=== PATIENT | male | born 1990 | race Caucasian/White ===

== ENCOUNTER 2016-08-03 17:46 | Emergency (ER) | payer SELFPAY ==
--- NOTE | 2016-08-03 18:22 | EKG REPORT ---
SEVERITY:- NORMAL ECG - SINUS RHYTHM : Confirmed by: El Collier MD 03-Aug-2016 18:21:49
[2016-08-03] MEDS ORDERED: FLUOXETINE HCL 20 MG CAPSULE PO ONE (18:25)
[2016-08-03] MEDS ORDERED: MAG HYDROX/AL HYDROX/SIMETH SUSP 30 ML UDCUP PO ONE (18:25)
[2016-08-03] MEDS ORDERED: LIDOCAINE 2% VISCOUS SOLN 20 ML UDCUP PO ONE (18:25)
[2016-08-03] MEDS ORDERED: METOCLOPRAMIDE HCL ORAL SOLN 10 MG/10 ML UDCUP PO ONE (18:25)
--- NOTE | 2016-08-03 18:31 | ER Document Report ---
ED General - General Chief Complaint: Chest Pain Stated Complaint: CHEST PAIN Notes: Patient is a 26-year-old male without past medical history who presents with 2 days of intermittent left-sided chest pain. Pain is described as intermittent, stabbing, pressure-like pain. Nothing improves or worsens the pain. States this is typically worse in the morning or when he is lying flat. He's had a history of similar chest pain in the past. Denies any history of DVT or pulmonary embolus. At time of my assessment he denies any ongoing chest pain. No shortness of breath, nausea, vomiting or pain radiating to the arms, jaw or back. TRAVEL OUTSIDE OF THE [place] IN LAST 30 DAYS: No COUNTRY TRAVELED TO/FROM: [facility] - Related Data Allergies/Adverse Reactions: risperidone [From Risperdal] Allergy (Verified 08/03/16 18:00) Past Medical History - General Information source: Patient - Social History Smoking Status: Current Every Day Smoker Frequency of alcohol use: Occasional Drug Abuse: None Lives with: Spouse/Significant other Family History: Reviewed & Not Pertinent Patient has suicidal ideation: No Patient has homicidal ideation: No - Past Medical History Cardiac Medical History: Reports: Hx Hypercholesterolemia - As teenager, not currently, Hx Hypertension - As teenager, not currently Renal/ Medical History: Denies: Hx Peritoneal Dialysis Past Surgical History: Reports: Hx Orthopedic Surgery - Right Ankle - Pins placed, Hx Tonsillectomy Review of Systems - Review of Systems Notes: Constitutional: Negative for fever. HENT: Negative for sore throat. Eyes: Negative for visual changes. Cardiovascular: Positive for chest pain. Respiratory: Negative for shortness of breath. Gastrointestinal: Negative for abdominal pain, vomiting or diarrhea. Genitourinary: Negative for dysuria. Musculoskeletal: Negative for back pain. Skin: Negative for rash. Neurological: Negative for headaches, weakness or numbness. 10 point ROS negative except as marked above and in HPI. Physical Exam - Vital signs Vitals: Temp Pulse Resp BP Pulse Ox 97.8 F 102 H 19 133/94 H 99 08/03/16 17:58 08/03/16 17:58 08/03/16 17:58 08/03/16 17:58 08/03/16 17:58 Patient was not tachycardic at time of my assessment, heart rate 82 Interpretation: Normal Notes: PHYSICAL EXAMINATION: GENERAL: Well-appearing, well-nourished and in no acute distress. HEAD: Atraumatic, normocephalic. EYES: Pupils equal round and reactive to light, extraocular movements intact, sclera anicteric, conjunctiva are normal. ENT: nares patent, oropharynx clear without exudates. Moist mucous membranes. NECK: Normal range of motion, supple without lymphadenopathy LUNGS: Breath sounds clear to auscultation bilaterally and equal. No wheezes rales or rhonchi. HEART: Regular rate and rhythm without murmurs ABDOMEN: Soft, nontender, normoactive bowel sounds. No guarding, no rebound. No masses appreciated. EXTREMITIES: Normal range of motion, no pitting or edema. No cyanosis. NEUROLOGICAL: No focal neurological deficits. Moves all extremities spontaneously and on command. PSYCH: Normal mood, normal affect. SKIN: Warm, Dry, normal turgor, no rashes or lesions noted. Course - Re-evaluation Re-evalutation: 08/03/16 18:32 Presentation of chest pain in an otherwise well appearing patient. Low clinical suspicion for ACS given clinical history, exam, EKG without ST elevations or depressions, and negative initial troponin. HEART score less than or equal to 3. PE also seems unlikely given clinical history, absence of tachycardia or dyspnea. Patient is PERC criteria negative (at time of my assessment and based on EKG HR). CXR without evidence of pneumothorax or pneumonia. No widened mediastinum. Aortic dissection also seems unlikely given history, symmetric pulses, CXR, and vitals. His history appears most consistent with either anxiety versus esophageal spasm. He did have resolution of his pain after receiving a GI cocktail here in the emergency department. Of note, patient states that in the past he was told he had had a "small heart attack" at a hospital when he was 23 years of age. However the clinical history provided is not consistent with this. He states he was x-ray discharged several hours of being told this, did not undergo cardiac catheterization, cardiac echocardiogram , and he was not placed on any medications. He has followed up with a airline transport pilot and was told that it does not appear he's ever had a heart attack. Likewise his EKG does not show any evidence of an old infarction and I likewise do not suspect that patient never had an actual cardiac injury. HEART Score: History:0 EC Age:0 Risk Factors:1 Troponin:0 Total: 0 Of note, the patient and I also discussed his chronic daily anxiety and he did request to be started on something to help treat this. He will be started on fluoxetine 20 mg daily and has been instructed to follow-up with his primary care doctor for continuation of this medication. - Vital Signs Vital signs: Temp Pulse Resp BP Pulse Ox 97.8 F 102 H 19 133/94 H 99 08/03/16 17:58 08/03/16 17:58 08/03/16 17:58 08/03/16 17:58 08/03/16 17:58 - EKG Interpretation by Me Additional EKG results interpreted by me: 08/03/16 18:31 Normal sinus rhythm. Rate 89. No ST elevations or depressions. QTC is 409. Discharge - Discharge Clinical Impression: Chronic anxiety Chest pain Qualifiers: Chest pain type: unspecified Qualified Code(s): R07.9 - Chest pain, unspecified Condition: Good Disposition: HOME, SELF-CARE Additional Instructions: You were seen today for chest pain. The exact cause of your pain is unclear. However, based on your cardiac enzyme testing, chest x-ray, and EKG it does not appear that it is from an immediately life-threatening cause at this time. Your symptoms are most likely related esophageal spasms. You should start taking famotidine 40 mg in the morning and 40 mg at night. This medication can be purchased directly [id number]. Also, based on our conversation about your daily anxiety you have been started on an antidepressant called fluoxetine. Please follow-up with the primary care doctor you were referred to for continuation of this medication. Please be aware that this medication typically takes 6-8 weeks to have its full effect and you may not notice anything for the first several weeks. Please do not abruptly stopped this medication on your own. Please return to emergency department immediately if you have worsening of your chest pain, shortness of breath, vomiting, become unable to exert yourself due to pain or difficulty breathing, you pass out, or have any pain that radiates into your arms, jaw, or back. Please also return if you have any additional symptoms that are concerning to you. Prescriptions: Fluoxetine HCl 20 mg PO DAILY #60 tablet Referrals: TREY SAMUEL MD [ACTIVE STAFF] - Follow up as needed
[2016-08-03 19:30] VITALS: BP 135/95
== END 2016-08-03 19:33 | disposition home or self-care (01) ==
LOC: ER 17:46
DX: R07.89 Other chest pain (principal); F41.9 Anxiety disorder, unspecified; I10 Essential (primary) hypertension; F17.200 Nicotine dependence, unspecified, uncomplicated; Z88.8 Allergy status to other drugs, medicaments and biological substances
CPT/HCPCS: 93005; 99285; 36415; 84484; 71010; 93010; J3490

== ENCOUNTER 2016-10-02 14:33 | Emergency (ER) | payer SELFPAY ==
[2016-10-02] MEDS ORDERED: HYDROCODONE/ACETAMINOPHEN 5-325 MG TABLET PO ONE (15:56)
--- NOTE | 2016-10-02 15:58 | ER Document Report ---
ED Medical Screen (RME) - General Chief Complaint: Abdominal Pain Stated Complaint: STOMACH PAIN Time Seen by Provider: 10/02/16 15:49 Notes: This 26-year-old male patient who recently moved here from [facility] complains of left testicular pain since a vasectomy was done on May 31, 2016. He was seen at [facility] about 5 days ago at which time an ultrasound and urinalysis were unremarkable. He was told to call a urologist on Friday morning for follow-up. He was on a state healthcare plan when he left [place]. He has been unable to get on Medicaid since arriving in [place]. He has no health insurance therefore cannot get an appointment. I have greeted and performed a rapid initial assessment of this patient. A comprehensive ED assessment and evaluation of the patient, analysis of test results and completion of the medical decision making process will be conducted by additional ED providers. TRAVEL OUTSIDE OF THE U[place] IN LAST 30 DAYS: No COUNTRY TRAVELED TO/FROM: [facility] - Related Data Allergies/Adverse Reactions: risperidone [From Risperdal] Allergy (Verified 08/03/16 18:00) Past Medical History - Past Medical History Cardiac Medical History: Reports: Hx Hypercholesterolemia - As teenager, not currently, Hx Hypertension - As teenager, not currently Renal/ Medical History: Denies: Hx Peritoneal Dialysis Past Surgical History: Reports: Hx Orthopedic Surgery - Right Ankle - Pins placed, Hx Tonsillectomy Physical Exam - Vital signs Vitals: Temp Pulse Resp BP Pulse Ox 98.3 F 88 22 H 135/86 H 99 10/02/16 14:37 10/02/16 14:37 10/02/16 14:37 10/02/16 14:37 10/02/16 14:37 Course - Vital Signs Vital signs: Temp Pulse Resp BP Pulse Ox 98.3 F 88 22 H 135/86 H 99 10/02/16 14:37 10/02/16 14:37 10/02/16 14:37 10/02/16 14:37 10/02/16 14:37
--- NOTE | 2016-10-02 17:51 | ER Document Report ---
ED GI/ - General Chief Complaint: Abdominal Pain Stated Complaint: ABDOMINAL PAIN Time Seen by Provider: 10/02/16 15:49 Notes: 26-year-old male patient,recently moved here from [facility], complains of right testicular pain since a vasectomy was done on May 31, 2016. He was seen at [facility] about 5 days ago at which time an ultrasound and urinalysis were unremarkable. He was told to call a urologist on Friday morning for follow-up. He was on a state healthcare plan when he left [place]. He has been unable to get on Medicaid since arriving in [place]. He has no health insurance therefore cannot get an appointment. Pain is the same in location and quality as it has been. denies fever, discharge, erectile dysfuction TRAVEL OUTSIDE OF THE [place] IN LAST 30 DAYS: No COUNTRY TRAVELED TO/FROM: [facility] - HPI Patient complains to provider of: Testicular pain Onset: Other - x 6 months Timing/Duration: Persistent Quality of pain: Sharp Location: Right testicle Sexual history: Active Associated symptoms: denies: Dysuria, Erection problem, Fever Exacerbated by: Denies Relieved by: Denies Similar symptoms previously: Yes Recently seen / treated by doctor: Yes - Related Data Allergies/Adverse Reactions: risperidone [From Risperdal] Allergy (Verified 08/03/16 18:00) Past Medical History - General Information source: Patient - Social History Smoking Status: Current Every Day Smoker Frequency of alcohol use: None Drug Abuse: None Lives with: Family Family History: Reviewed & Not Pertinent Patient has suicidal ideation: No Patient has homicidal ideation: No - Past Medical History Cardiac Medical History: Reports: Hx Hypercholesterolemia - As teenager, not currently, Hx Hypertension - As teenager, not currently Renal/ Medical History: Denies: Hx Peritoneal Dialysis Past Surgical History: Reports: Hx Orthopedic Surgery - Right Ankle - Pins placed, Hx Tonsillectomy Review of Systems - Review of Systems Constitutional: No symptoms reported EENT: No symptoms reported Cardiovascular: No symptoms reported Respiratory: No symptoms reported Gastrointestinal: No symptoms reported Genitourinary: See HPI Male Genitourinary: No symptoms reported Musculoskeletal: No symptoms reported Skin: No symptoms reported Hematologic/Lymphatic: No symptoms reported Neurological/Psychological: No symptoms reported Physical Exam - Vital signs Vitals: Temp Pulse Resp BP Pulse Ox 98.3 F 88 22 H 135/86 H 99 10/02/16 14:37 10/02/16 14:37 10/02/16 14:37 10/02/16 14:37 10/02/16 14:37 Interpretation: Normal - General General appearance: Appears well, Alert - HEENT Head: Normocephalic, Atraumatic Eyes: Normal Pupils: PERRL - Respiratory Respiratory status: No respiratory distress Chest status: Nontender Breath sounds: Normal Chest palpation: Normal - Cardiovascular Rhythm: Regular Heart sounds: Normal auscultation Murmur: No - Abdominal Inspection: Normal Distension: No distension Bowel sounds: Normal Tenderness: Nontender Organomegaly: No organomegaly - Genitourinary Tenderness: Testicle tender - right, Epididymis tender Scrotum: Swelling - right - Back Back: Normal, Nontender - Extremities General upper extremity: Normal inspection, Nontender, Normal color, Normal ROM , Normal temperature General lower extremity: Normal inspection, Nontender, Normal color, Normal ROM , Normal temperature, Normal weight bearing. No: Panchito's sign - Neurological Neuro grossly intact: Yes Cognition: Normal Orientation: AAOx4 Kathleen Coma Scale Eye Opening: Spontaneous Teresa Coma Scale Verbal: Oriented Kathleen Coma Scale Motor: Obeys Commands Kathleen Coma Scale Total: 15 Speech: Normal Motor strength normal: LUE, RUE, LLE, RLE Sensory: Normal - Psychological Associated symptoms: Normal affect, Normal mood - Skin Skin Temperature: Warm Skin Moisture: Dry Skin Color: Normal Course - Re-evaluation Re-evalutation: 10/02/16 18:18 US done recently, negative. no change in character, quality or location of pain. no new symptoms. will treat for pain and have patient follow up with urology. explained to patient that ED will not refill pain medication. - Vital Signs Vital signs: Temp Pulse Resp BP Pulse Ox 98.3 F 88 22 H 135/86 H 99 10/02/16 14:37 10/02/16 14:37 10/02/16 14:37 10/02/16 14:37 10/02/16 14:37 Discharge - Discharge Clinical Impression: Testicular pain, right Condition: Stable Disposition: HOME, SELF-CARE Instructions: Testicular Pain ([facility]), Oral Narcotic Medication ([facility]) Additional Instructions: You have been given a prescription for a narcotic pain medication The ER will not refill this prescription You need to follow up with urology for further evaluation and treatment [facility] [address] [place] [address] Prescriptions: Oxycodone HCl/Acetaminophen [Percocet 5-325 mg Tablet] 1 tab PO ASDIR PRN #25 tablet PRN Reason: Forms: Elevated Blood Pressure Referrals: ZULAY MONTANEZ MD [QUICK TECHNICIAN] - Follow up as needed
[2016-10-02 18:30] VITALS: BP 132/80
== END 2016-10-02 18:16 | disposition home or self-care (01) ==
LOC: ER 14:33
DX: N50.811 Right testicular pain (principal); F17.200 Nicotine dependence, unspecified, uncomplicated
CPT/HCPCS: 99283

== ENCOUNTER 2018-02-18 16:00 | Emergency (ER) | payer MEDICAID ==
[2018-02-18] MEDS ORDERED: CYCLOBENZAPRINE HCL 10 MG TABLET PO ONE (16:57)
[2018-02-18] MEDS ORDERED: DEXAMETHASONE SOD PHOS INJ 10 MG/1 ML VIAL IM ONE (16:57)
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
--- NOTE | 2018-02-18 18:11 | RADIOLOGY REPORT (SQ) ---
EXAM DESCRIPTION: L SPINE WHOLE COMPLETED DATE/TIME: 02/18/2018 5:49 pm REASON FOR STUDY: severe back pain x 4 days COMPARISON: None. NUMBER OF VIEWS: Five views including obliques. TECHNIQUE: AP, lateral, oblique, and sacral radiographic images acquired of the lumbar spine. LIMITATIONS: None. FINDINGS: MINERALIZATION: Normal. SEGMENTATION: Normal. No transitional anatomy. ALIGNMENT: Normal. VERTEBRAE: There is mild anterior wedging of T12 of uncertain age. DISCS: Preserved height. No significant osteophytes or end plate irregularity. POSTERIOR ELEMENTS: Pedicles and facets are intact. No pars defect or posterior arch defects. HARDWARE: None in the spine. PARASPINAL SOFT TISSUES: Normal. PELVIS: Intact as visualized. No fractures or worrisome bone lesions. SI joints intact. OTHER: No other significant finding. IMPRESSION: There is mild anterior wedging of T12 uncertain age. No other abnormality is suggested. TECHNICAL DOCUMENTATION: JOB ID: [id number] [email or web address]- All Rights Reserved Reading location - IP/workstation name: [email or web address]
--- NOTE | 2018-02-18 18:12 | RADIOLOGY REPORT (SQ) ---
EXAM DESCRIPTION: T SPINE AP/LAT COMPLETED DATE/TIME: 02/18/2018 5:49 pm REASON FOR STUDY: severe back pain x 4 days COMPARISON: None. NUMBER OF VIEWS: Two views. TECHNIQUE: AP and lateral radiographic images acquired of the thoracic spine. LIMITATIONS: None. FINDINGS: MINERALIZATION: Normal. ALIGNMENT: Normal. No scoliosis. VERTEBRAE: Mild anterior wedging of T12. DISCS: No significant loss of height or significant narrowing. No large osteophytes. HARDWARE: None in the spine. MEDIASTINUM AND SOFT TISSUES: Normal heart size and aortic contour. No soft tissue abnormality. VISUALIZED LUNG CHERRY: Clear. OTHER: No other significant finding. IMPRESSION: Mild anterior wedging of T12 of uncertain age. No other findings. TECHNICAL DOCUMENTATION: JOB ID: [id number] [employer]- All Rights Reserved Reading location - IP/workstation name: [email or web address]
[2018-02-18] MEDS ORDERED: HYDROCODONE/ACETAMINOPHEN 5-325 MG TABLET PO ONE (18:50)
[2018-02-18 19:30] VITALS: BP 144/93
== END 2018-02-18 19:31 | disposition home or self-care (01) ==
LOC: ER 16:00
DX: M54.42 Lumbago with sciatica, left side (principal); M54.89 Other dorsalgia; I10 Essential (primary) hypertension; F17.210 Nicotine dependence, cigarettes, uncomplicated; Z71.6 Tobacco abuse counseling
CPT/HCPCS: 99406; 99283; 96372; 72110; 72070; J3490; J1100

== ENCOUNTER 2018-02-22 14:38 | Emergency (ER) | payer MEDICAID ==
[2018-02-22] MEDS ORDERED: KETOROLAC TROMETHAMINE INJ/PF 30 MG/1 ML SDV IM ONE (15:22)
[2018-02-22 15:23] VITALS: BP 155/89
[2018-02-22] MEDS ORDERED: DEXAMETHASONE 4 MG TABLET PO ONE (15:23)
--- NOTE | 2018-02-22 15:28 | ER Document Report ---
ED Neck/Back Problem - General Chief Complaint: Back Pain Stated Complaint: LEG/BACK PAIN Time Seen by Provider: 02/22/18 14:58 Mode of Arrival: Ambulatory Information source: Patient Notes: 27-year-old male presented to ED for complaint of lower back pain. He states he was recently seen in the emergency for back pain and was diagnosed with wedging fracture of T12. He states he also has sciatic pain. He states his been taking the muscle relaxers as prescribed but has not had any relief. He states today he came in him before he got a steroid shot and he had tremendous relief and was able to move around to walk but then the pain came back. He states he has not been able to follow-up with his primary care. He states he has not been to primary care for his blood pressure either. TRAVEL OUTSIDE OF THE [place] IN LAST 30 DAYS: No COUNTRY TRAVELED TO/FROM: 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 denies: Incontinence, Motor loss, Numbness/tingling, Sensory loss, Unable to urinate Exacerbated by: Movement of trunk, Sitting position Relieved by: Nothing Similar symptoms previously: Yes Recently seen / treated by doctor: Yes - Related Data Allergies/Adverse Reactions: risperidone [From Risperdal] Allergy (Verified 02/18/18 16:01) Past Medical History - General Information source: Patient - Social History Smoking Status: Current Every Day Smoker Cigarette use (# per day): Yes - Pack per day Chew tobacco use (# tins/day): No Smoking Education Provided: Yes - Permanent Frequency of alcohol use: Heavy Drug Abuse: None Lives with: Family Family History: Reviewed & Not Pertinent Patient has suicidal ideation: No Patient has homicidal ideation: No - Past Medical History Cardiac Medical History: Reports: Hx Hypercholesterolemia - As teenager, not currently, Hx Hypertension - As teenager, not currently Pulmonary Medical History: Reports: None EENT Medical History: Reports: None Neurological Medical History: Reports: None Endocrine Medical History: Reports: None Renal/ Medical History: Reports: None Malignancy Medical History: Reports None GI Medical History: Reports: None Musculoskeletal Medical History: Reports Hx Musculoskeletal Trauma Skin Medical History: Reports None Psychiatric Medical History: Reports: None Traumatic Medical History: Reports: Hx Fractures - Ankle Infectious Medical History: Reports: None Past Surgical History: Reports: Hx Orthopedic Surgery - Right Ankle - Pins placed, Hx Tonsillectomy - Immunizations Immunizations up to date: Yes Review of Systems - Review of Systems Notes: REVIEW OF SYSTEMS: CONSTITUTIONAL : Denies fever, chills, or sweats. Denies recent illness. EENT: Denies eye, ear, throat, or mouth pain or symptoms. Denies nasal or sinus congestion or discharge. Denies throat, tongue, or mouth swelling or difficulty swallowing. CARDIOVASCULAR: Denies chest pain. Denies palpitations or racing or irregular heart beat. Denies ankle edema. RESPIRATORY: Denies cough, cold, or chest congestion. Denies shortness of breath, difficulty breathing, or wheezing. GASTROINTESTINAL: Denies abdominal pain or distention. Denies nausea, vomiting , or diarrhea. Denies blood in vomitus, stools, or per rectum. Denies black, tarry stools. Denies constipation. GENITOURINARY: Denies difficulty urinating, painful urination, burning, frequency, blood in urine, or discharge. MUSCULOSKELETAL: She has pain in his back got better for a couple days after he took the steroids but then it came back and he has not been able to follow-up with her primary doctor or a back specialist. He states he has been taking his muscle relaxers but he is not getting any relief with ibuprofen or the muscle relaxers. Denies joint pain or swelling. SKIN: Denies rash, lesions or sores. HEMATOLOGIC : Denies easy bruising or bleeding. LYMPHATIC: Denies swollen, enlarged glands. NEUROLOGICAL: Denies confusion or altered mental status. Denies passing out or loss of consciousness. Denies dizziness or lightheadedness. Denies headache. Denies weakness or paralysis or loss of use of either side. Denies problems with gait or speech. Denies sensory loss, numbness, or tingling. Denies seizures. PSYCHIATRIC: Denies anxiety or stress. Denies depression, suicidal ideation, or homicidal ideation. ALL OTHER SYSTEMS REVIEWED AND NEGATIVE. Dictation was performed using Dragon voice recognition software PHYSICAL EXAMINATION: GENERAL: Well-appearing, well-nourished and in no acute distress. HEAD: Atraumatic, normocephalic. EYES: Pupils equal round and reactive to light, extraocular movements intact, sclera anicteric, conjunctiva are normal. ENT: Nares patent, oropharynx clear without exudates. Moist mucous membranes. NECK: Normal range of motion, supple without lymphadenopathy LUNGS: Breath sounds clear to auscultation bilaterally and equal. No wheezes rales or rhonchi. HEART: Regular rate and rhythm without murmurs ABDOMEN: Soft, nontender, nondistended abdomen. No guarding, no rebound. No masses appreciated. Musculoskeletal: Tenderness to bilateral middle and lower back radiating down the left buttocks there is no radiation down the arm NEUROLOGICAL: Cranial nerves grossly intact. Normal speech, normal gait. Normal sensory, motor exams PSYCH: Normal mood, normal affect. SKIN: Warm, Dry, normal turgor, no rashes or lesions noted. Physical Exam - Vital signs Vitals: Temp Pulse Resp BP Pulse Ox 98.1 F 95 18 155/87 H 98 02/22/18 14:47 02/22/18 14:47 02/22/18 14:47 02/22/18 14:47 02/22/18 14:47 Course - Re-evaluation Re-evalutation: 02/22/18 23:04 Patient was treated with Toradol and steroids. He was discharged home to follow -up with primary doctor tomorrow. Patient was instructed that it is very important that he follows up with the blood pressure and the back pain. Patient was instructed on ice warm packs and exercises. He states he has not been doing the exercises. Patient was discharged home. Patient was able to walk freely when he walked out of the emergency room. - Vital Signs Vital signs: Temp Pulse Resp BP Pulse Ox 97.9 F 89 18 155/89 H 99 02/22/18 15:21 02/22/18 15:21 02/22/18 15:21 02/22/18 15:21 02/22/18 15:21 Discharge - Discharge Clinical Impression: Low back pain Qualifiers: Chronicity: unspecified Back pain laterality: bilateral Sciatica presence: with sciatica Sciatica laterality: sciatica of left side Qualified Code(s): M54.42 - Lumbago with sciatica, left side Condition: Stable Disposition: HOME, SELF-CARE Additional Instructions: LOW BACK PAIN: Three out of every four people will have an episode of disabling back pain during their lifetime. Most commonly the pain is due to straining of the muscles and ligaments in the low back. Usual treatment includes: (1) Rest on a firm surface. Avoid lying on your stomach. (2) Ice pack the painful area. After a few days, gentle heat may be used intermittently to relax the area, or ice packs can be continued. (3) Medication may be needed -- muscle relaxers and antiinflammatory medicines are commonly used. (4) As the back improves, exercises are prescribed to strengthen the back and abdominal muscles. Your doctor will advise you on the proper care for your back at each stage in your recovery. You may be better in a few days -- or healing may take several weeks. If new symptoms of a "herniated disc" (radiation of pain, numbness, or tingling down the back of the leg or weakness in the leg) occur, you should be re-examined. Further testing may be necessary. STEROID MEDICATION: You have been given a medicine of the cortisone/steroid class. This medication is used to control inflammation or allergy. It is usually only given for a short period of time, until the acute process subsides. There are usually no side effects from short-term use of cortisone-like medications. Some persons feel an increased sense of well-being and are not sleepy at bedtime. Long-term use of cortisone medications is best avoided, unless required for a severe condition. If your condition does not remit, or relapses after the course of corticosteroid medication, you should consult your physician. Toradol Injection You have been given an injection of ketorolac tromethamine (Toradol). This is an excellent, safe drug for pain control. It also has potent antiinflammatory action. You should have significant pain relief within about one hour. Toradol is not addicting and is non-sedating. It does not interfere with driving or work. Call or return if you develop itching, hives, shortness of breath, or rash. Ibuprofen Ibuprofen is an excellent, safe drug for pain control. In addition, it has potent antiinflammatory effects which are beneficial, especially in the treatment of injuries, arthritis, or tendonitis. It's best to take ibuprofen with food. Persons with ulcer disease or allergy to aspirin should notify their physician of this before taking ibuprofen. Take the medication exactly as prescribed. Don't take additional doses unless instructed to do so by your doctor. If you develop wheezing, shortness of breath, hives, faintness, stomach pain, vomiting, or dark black stools, return for re-evaluation at once. MUSCLE RELAXERS: Muscle relaxing medications are usually prescribed for acute muscle spasm or injury to the neck and back. They are often combined with antiinflammatory pain medication for increased relief. You may stop the muscle relaxer when the pain and stiffness have improved. Start the medication again if spasms recur. Muscle relaxers may cause drowsiness, especially with the first dose. Do not operate machinery or drive while under the effects of the medication. Most muscle relaxers last up to 24 hours. Do not combine the medication with alcohol. ICE PACKS: Apply ice packs frequently against the painful area. Many different schedules are recommended, such as "20 minutes on, 20 minutes off" or "one hour ice, two hours rest." If you need to work, you may need to go longer between ice treatments. You should plan to have the area ice packed AT LEAST one fourth of the time. The ice should be applied over the wrap, tape, or splint, or over a layer of cloth -- not directly against the skin. Some ice bags have a built-in cloth and can be put directly on the skin. WARM PACKS: After approximately two days, apply gentle heat (such as a heating pad or hot water bottle) for about 20 to 30 minutes about every two hours -- at least four times daily. Warmth and elevation will help you make a more rapid recovery , and will ease the pain considerably. Do not use HOT heat, and never apply heat for longer than 30 minutes. The continuous heat can invisibly damage skin and muscles -- even when no burn is seen on the surface. Damaged muscles can make you MORE sore. FOLLOW-UP CARE: If you have been referred to a physician for follow-up care, call the physician s office for an appointment as you were instructed or within the next two days. If you experience worsening or a significant change in your symptoms, notify the physician immediately or return to the Emergency Department at any time for re-evaluation. Follow-up with the doctors as we discussed on your last visit. [facility] has a spine doctor, [facility] can cover blood pressure or 1 of the family practice physicians can cover your blood pressure. Prescriptions: Dexamethasone [Decadron] 6 mg PO DAILY #4 tablet Forms: Elevated Blood Pressure, Smoking Cessation Education
== END 2018-02-22 15:41 | disposition home or self-care (01) ==
LOC: ER 14:38
DX: M54.42 Lumbago with sciatica, left side (principal); M54.9 Dorsalgia, unspecified; F17.210 Nicotine dependence, cigarettes, uncomplicated
CPT/HCPCS: 99283; 96372; J3490; J1885

== ENCOUNTER 2018-02-24 13:40 | Emergency (ER) | payer MEDICAID ==
--- NOTE | 2018-02-24 14:12 | ER Document Report ---
ED Medical Screen (RME) - General Chief Complaint: Testicular Pain Stated Complaint: RIGHT TESTICULAR PAIN,ABDOMINAL PAIN Time Seen by Provider: 02/24/18 14:03 TRAVEL OUTSIDE OF THE [place] IN LAST 30 DAYS: No COUNTRY TRAVELED TO/FROM: [facility] - Related Data Allergies/Adverse Reactions: risperidone [From Risperdal] Allergy (Verified 02/18/18 16:01) Past Medical History - Past Medical History Cardiac Medical History: Reports: Hx Hypercholesterolemia - As teenager, not currently, Hx Hypertension - As teenager, not currently Renal/ Medical History: Denies: Hx Peritoneal Dialysis Musculoskeltal Medical History: Reports Hx Musculoskeletal Trauma Traumatic Medical History: Reports: Hx Fractures - Ankle Past Surgical History: Reports: Hx Orthopedic Surgery - Right Ankle - Pins placed, Hx Tonsillectomy - Immunizations Immunizations up to date: Yes Physical Exam - Vital signs Vitals: Temp Pulse Resp BP Pulse Ox 97.2 F 81 18 150/85 H 97 02/24/18 13:49 02/24/18 13:49 02/24/18 13:49 02/24/18 13:49 02/24/18 13:49 Course - Re-evaluation Re-evalutation: 02/24/18 14:11 27-year-old man the presents for evaluation of scrotal pain in the setting of having his right-sided testicle retreat slightly up into his body thereafter he had pulled it downward and has had intense pain in that side since with radiation in his right groin and above his abdomen. Has been diagnosed with a compression fracture recently but has not had any other issues major traumas recently. I have seen and performed a rapid medical screening examination on this patient. This patient will require further evaluation and disposition determination by a secondary provider. - Vital Signs Vital signs: Temp Pulse Resp BP Pulse Ox 97.2 F 81 18 150/85 H 97 02/24/18 13:49 02/24/18 13:49 02/24/18 13:49 02/24/18 13:49 02/24/18 13:49
[2018-02-24 14:48] LABS: APPEARANCE,URINE CLEAR; BILIRUBIN,URINE NEGATIVE (NEGATIVE); COLOR,URINE YELLOW; GLUCOSE, URINE NEGATIVE (NEGATIVE); KETONES,URINE NEGATIVE (NEGATIVE); LEUKOCYTE ESTERASE,URINE NEGATIVE (NEGATIVE); NITRITE,URINE NEGATIVE (NEGATIVE); PROTEIN,URINE NEGATIVE (NEGATIVE); URINE SPECIFIC GRAVITY 1.018; UROBILINOGEN,URINE NEGATIVE mg/dL (<2.0)
--- NOTE | 2018-02-24 15:46 | RADIOLOGY REPORT (SQ) ---
EXAM DESCRIPTION: U/S SCROTUM W/DOPPLER COMPLETED DATE/TIME: 02/24/2018 3:34 pm REASON FOR STUDY: concern for torsion non right COMPARISON: None. TECHNIQUE: Static and realtime rodriguez scale imaging of the scrotum and testes. Selected color Doppler and spectral images recorded to document blood flow. LIMITATIONS: None. FINDINGS: RIGHT: TESTICLE: Normal size, 4.9 x 3.7 x 2.6 cm. Normal echotexture. Normal blood flow. No mass. EPIDIDYMIS: Normal, 1.1 cm. HYDROCELE OR VARICOCELE: No. HERNIA OR EXTRA-TESTICULAR MASS: No. OTHER: No other significant finding. LEFT: TESTICLE: Normal size, 4.4 x 3.2 x 2.5 cm. Normal echotexture. Normal blood flow. No mass. EPIDIDYMIS: Normal, 1.1 cm. HYDROCELE OR VARICOCELE: No. HERNIA OR EXTRA-TESTICULAR MASS: No. OTHER: No other significant finding. IMPRESSION: NORMAL SCROTAL ULTRASOUND. NO EVIDENCE OF TESTICULAR MASS OR TORSION. TECHNICAL DOCUMENTATION: JOB ID: [id number] [employer]- All Rights Reserved Reading location - IP/workstation name: [email or web address]
--- NOTE | 2018-02-24 17:03 | ER Document Report ---
ED GI/ - General Chief Complaint: Testicular Pain Stated Complaint: RIGHT TESTICULAR PAIN,ABDOMINAL PAIN Time Seen by Provider: 02/24/18 14:03 Notes: Patient says he is having pain in his right testicle since about 6:00 this morning. He awakened and had pain in the right testicle and felt it was pulled up. He is stretched and pulled on the testicle and it came back down. He says the testicle was swollen earlier, but not now. He has significant pain in the testicle when he urinates. Has not noticed any blood in his urine. Has not passed any pus from his urethra. Has not had any nausea or vomiting. Has never had kidney stones. Denies any fevers. Vasectomy 2016. Following this procedure, the patient had similar symptoms to current symptoms with pain and swelling in the right testicle, but it went away after a couple of days. Chronic back pain. TRAVEL OUTSIDE OF THE [place] IN LAST 30 DAYS: No COUNTRY TRAVELED TO/FROM: [facility] - Related Data Allergies/Adverse Reactions: risperidone [From Risperdal] Allergy (Verified 02/18/18 16:01) Past Medical History - Social History Smoking Status: Current Every Day Smoker Chew tobacco use (# tins/day): No Frequency of alcohol use: None Drug Abuse: None Family History: Reviewed & Not Pertinent Patient has suicidal ideation: No Patient has homicidal ideation: No - Past Medical History Cardiac Medical History: Reports: Hx Hypercholesterolemia - As teenager, not currently, Hx Hypertension - As teenager, not currently Musculoskeletal Medical History: Reports Hx Musculoskeletal Trauma Traumatic Medical History: Reports: Hx Fractures - Ankle Past Surgical History: Reports: Hx Orthopedic Surgery - Right Ankle - Pins placed, Hx Tonsillectomy, Other - Vasectomy 2016 - Immunizations Immunizations up to date: Yes Review of Systems - Review of Systems Notes: REVIEW OF SYSTEMS: CONSTITUTIONAL : Denies fever. EENT: Denies eye, ear, nose or mouth or throat pain or other symptoms. CARDIOVASCULAR: Denies chest pain. RESPIRATORY: Denies cough, chest congestion, or shortness of breath. GASTROINTESTINAL: Pain from the right testicle radiates up into the right groin region. GENITOURINARY: See HPI. MUSCULOSKELETAL: Denies back or neck pain. Denies joint pain or swelling. SKIN: Denies rash or skin lesions. NEUROLOGICAL: Denies LOC or altered mental status. Denies headache. Denies sensory loss or motor deficits. ALL OTHER SYSTEMS REVIEWED AND NEGATIVE. Physical Exam - Vital signs Vitals: Temp Pulse Resp BP Pulse Ox 97.2 F 81 18 150/85 H 97 02/24/18 13:49 02/24/18 13:49 02/24/18 13:49 02/24/18 13:49 02/24/18 13:49 Interpretation: Normal. No: Febrile Notes: PHYSICAL EXAMINATION: GENERAL: Well-appearing, in no acute distress. Appears to be in pain when moving, bending, etc. HEAD: Atraumatic, normocephalic. EYES: Pupils equal round and reactive to light, extraocular movements intact. ENT: oropharynx clear without exudates. Moist mucous membranes. NECK: Normal range of motion, supple. LUNGS: Breath sounds clear and equal bilaterally. HEART: Regular rate and rhythm without murmurs. ABDOMEN: Soft, nontender. No guarding or rebound. No masses. No tenderness at McBurney's point. Genitourinary: Patient's right testicle was renally tender to touch or squeeze or press. However, I do not think it swollen when compared to the normal left side. Not much tenderness up in the region of the cord. Epididymis not palpated. No discoloration of the skin superficially. BACK: No tenderness throughout entire back. EXTREMITIES: Normal range of motion without pain. NEUROLOGICAL: Normal speech, normal gait. Normal sensory, motor, and reflex exams. Awake, alert, and oriented x3. Cranial nerves normal. PSYCH: Normal mood, normal affect. SKIN: Warm, dry, no rashes. Course - Re-evaluation Re-evalutation: 02/24/18 17:03 Patient had a normal ultrasound and a normal analysis. - Vital Signs Vital signs: Temp Pulse Resp BP Pulse Ox 97.9 F 77 18 147/84 H 100 02/24/18 17:29 02/24/18 17:29 02/24/18 13:49 02/24/18 17:29 02/24/18 17:29 - Diagnostic Test Radiology reviewed: Image reviewed, Reports reviewed - Ultrasound of the right scrotum shows normal blood flow and no abnormalities of either testicle. Discharge - Discharge Clinical Impression: Right testicular pain Condition: Stable Disposition: HOME, SELF-CARE Additional Instructions: Testicular Pain Sometimes we can't prove the exact cause of testicle pain. Pain in the testicle can be caused by many different problems, including viral infections of the testicle, urinary tract infection, kidney stones, inflammation of the epididymis (the sac behind the testicle), hernia, dilated veins in the scrotum, or subtle injury. The most serious causes of testicular pain are tumor or twisting of the testicle. An ultrasound exam often shows what's wrong. When the initial testing doesn 't show a cause for the pain, we usually refer to a urologist. Rest. Gentle warmth may help with symptoms. It's usually helpful to wear underwear that gives good support to the testicles ("briefs" instead of "boxers "). Call the doctor or return if there is sudden worsening of pain, fever, vomiting, testicle swelling, or discoloration of the scrotum. Ibuprofen Ibuprofen is an excellent, safe drug for pain control. In addition, it has potent antiinflammatory effects which are beneficial, especially in the treatment of injuries, arthritis, or tendonitis. It's best to take ibuprofen with food. Persons with ulcer disease or allergy to aspirin should notify their physician of this before taking ibuprofen. Take the medication exactly as prescribed. Don't take additional doses unless instructed to do so by your doctor. If you develop wheezing, shortness of breath, hives, faintness, stomach pain, vomiting, or dark black stools, return for re-evaluation at once. Oral Narcotic Medication You have been given a prescription for pain control. This medication is a narcotic. It's best taken with food, as nausea can result if taken on an empty stomach. Don't operate machinery or drive within six hours of taking this medication. Do not combine this medicine with alcohol, or with any medication which can cause sedation (such as cold tablets or sleeping pills) unless you get permission from the physician. Narcotics tend to cause constipation. If possible, drink plenty of fluids and eat a diet high in fiber and fruits. We could not find any specific cause for your pain in your testicle. There is good blood flow into both testicles. No evidence of any inflammatory processes like epididymitis, etc. If you have not noted any improvement in your symptoms in 2 days, I recommend you follow-up with a urologist. FOLLOW-UP CARE: If you have been referred to a physician for follow-up care, call the physician s office for an appointment as you were instructed or within the next two days. If you experience worsening or a significant change in your symptoms, notify the physician immediately or return to the Emergency Department at any time for re-evaluation. Prescriptions: Oxycodone HCl/Acetaminophen [Percocet 5-325 mg Tablet] 1 - 2 tab PO Q4H PRN #10 tablet PRN Reason: Referrals: JONATHAN [facility] [NO LOCAL MD] - Follow up as needed
[2018-02-24 17:32] VITALS: BP 147/84
== END 2018-02-24 17:36 | disposition home or self-care (01) ==
LOC: ER 13:40
DX: N50.811 Right testicular pain (principal); G89.29 Other chronic pain; M54.9 Dorsalgia, unspecified; F17.200 Nicotine dependence, unspecified, uncomplicated; Z98.52 Vasectomy status
CPT/HCPCS: 76870; 81001; 87086; 93976; 99284

== ENCOUNTER 2018-09-17 15:54 | Emergency (ER) | payer MEDICAID, OTHER ==
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
--- NOTE | 2018-09-17 16:49 | RADIOLOGY REPORT (SQ) ---
EXAM DESCRIPTION: CT HEAD WITHOUT COMPLETED DATE/TIME: 09/17/2018 4:38 pm REASON FOR STUDY: head injury, brown, disoriented COMPARISON: None. TECHNIQUE: Axial images acquired through the brain without intravenous contrast. Images reviewed wi th bone, brain and subdural windows. Additional sagittal and coronal reconstructions were generated. Images stored on PACS. All CT scanners at this facility use dose modulation, iterative reconstruction, and/or weight based d osing when appropriate to reduce radiation dose to as low as reasonably achievable (ALARA). [facility]: Dose Right [facility]: CareDose [facility]: Dose Right [facility]: Teradose 4D [facility]: [employer] RADIATION DOSE: CT Rad equipment meets quality standard of care and radiation dose reduction techniq ues were employed. CTDIvol: 53.2 mGy. DLP: 991 mGy-cm. mGy. LIMITATIONS: None. FINDINGS: VENTRICLES: Normal size and contour. CEREBRUM: No masses. No hemorrhage. No midline shift. No evidence for acute infarction. Normal gra y/white matter differentiation. No areas of low density in the white matter. CEREBELLUM: No masses. No hemorrhage. No alteration of density. No evidence for acute infarction. EXTRAAXIAL SPACES: No fluid collections. No masses. ORBITS AND GLOBE: No intra- or extraconal masses. Normal contour of globe without masses. CALVARIUM: No fracture. PARANASAL SINUSES: No fluid or mucosal thickening. SOFT TISSUES: No mass or hematoma. OTHER: No other significant finding. IMPRESSION: NORMAL BRAIN CT WITHOUT CONTRAST. EVIDENCE OF ACUTE STROKE: NO. COMMENT: Quality ID # [id number]: Final reports with documentation of one or more dose reduction techniques (e.g., Automated exposure control, adjustment of the mA and/or kV according to patient size, use of iterative reconstruction technique) TECHNICAL DOCUMENTATION: JOB ID: [id number] [employer]- All Rights Reserved Reading location - IP/workstation name: [email or web address]
[2018-09-17 17:02] VITALS: BP 147/101
== END 2018-09-17 17:02 | disposition home or self-care (01) ==
LOC: ER 15:54
DX: R51 Headache (principal); H53.8 Other visual disturbances; R42 Dizziness and giddiness; F17.210 Nicotine dependence, cigarettes, uncomplicated; V43.52XA Car driver injured in collision with other type car in traffic accident, initial encounter; Y99.0 Civilian activity done for income or pay
CPT/HCPCS: 70450; 99283

== ENCOUNTER 2018-11-04 20:01 | Emergency (ER) | payer SELFPAY ==
[2018-11-04] MEDS ORDERED: NORMAL SALINE 1000 ML 1,000 ML IV ONE (22:19)
[2018-11-04] MEDS ORDERED: KETOROLAC TROMETHAMINE INJ/PF 30 MG/1 ML SDV IV ONE (22:19)
[2018-11-04 22:27] LABS: ABSOLUTE BASOPHILS # (AUTO) 0.1 10^3/uL (0.0-0.2); ABSOLUTE EOSINOPHILS # (AUTO) 0.2 10^3/uL (0.0-0.6); ABSOLUTE LYMPHOCYTES (AUTO) 3.5 10^3/uL (0.5-4.7); ABSOLUTE NEUT (AUTO) 9.8 10^3/uL (1.7-8.2); BASOPHILS % (AUTO) 0.4 % (0-2); EOSINOPHILS % (AUTO) 1.3 % (0-6); HEMATOCRIT 48.2 % (37.9-51.0); HEMOGLOBIN 16.7 g/dL (13.5-17.0); LYMPHOCYTES % (AUTO) 24.3 % (13-45); MEAN CORPUSCULAR HEMOGLOBIN 29.1 pg (27.0-33.4); MEAN CORPUSCULAR HGB CONC 34.7 g/dL (32.0-36.0); MEAN CORPUSCULAR VOLUME 84 fl (80-97); MONOCYTES % (AUTO) 6.6 % (3-13); PLATELET COUNT 292 10^3/uL (150-450); RED BLOOD COUNT 5.74 10^6/uL (4.35-5.55); RED CELL DISTRIBUTION WIDTH 13.4 % (11.5-14.0); SEGMENTED NEUTROPHILS % (AUTO) 67.4 % (42-78); TOTAL CELLS COUNTED % (AUTO) 100 %; WHITE BLOOD COUNT 14.5 10^3/uL (4.0-10.5)
[2018-11-04 22:45] LABS: ALBUMIN 4.6 g/dL (3.5-5.0); ALKALINE PHOSPHATASE 54 U/L (38-126); ANION GAP 9 (5-19); ASPARTATE AMINO TRANSFERASE 29 U/L (17-59); BILIRUBIN,DIRECT 0.2 mg/dL (0.0-0.4); BILIRUBIN,TOTAL 0.6 mg/dL (0.2-1.3); BLOOD UREA NITROGEN 15 mg/dL (7-20); CALCIUM 9.4 mg/dL (8.4-10.2); CARBON DIOXIDE 29 mmol/L (22-30); CHLORIDE 100 mmol/L (98-107); CREATINE KINASE 75 U/L (55-170); GLUCOSE 89 mg/dL (75-110); TOTAL PROTEIN 7.5 g/dL (6.3-8.2)
[2018-11-04 22:57] LABS: CREATINE KINASE MB 0.28 ng/mL (<4.55)
[2018-11-04 22:58] LABS: TROPONIN I < 0.012 ng/mL
[2018-11-04 23:08] LABS: APPEARANCE,URINE CLEAR; BILIRUBIN,URINE NEGATIVE (NEGATIVE); COLOR,URINE YELLOW; GLUCOSE, URINE NEGATIVE (NEGATIVE); KETONES,URINE NEGATIVE (NEGATIVE); LEUKOCYTE ESTERASE,URINE NEGATIVE (NEGATIVE); NITRITE,URINE NEGATIVE (NEGATIVE); PROTEIN,URINE NEGATIVE (NEGATIVE); URINE SPECIFIC GRAVITY 1.019; UROBILINOGEN,URINE NEGATIVE mg/dL (<2.0)
--- NOTE | 2018-11-04 23:42 | RADIOLOGY REPORT (SQ) ---
CLINICAL HISTORY: Right sided chest pain COMPARISON: None. TECHNIQUE: XR CHEST 2 VIEWS 11/04/2018 11:14 PM CDT FINDINGS: Cardiac silhouette is normal in size. Lungs are clear without consolidation, atelectasis, mass or edema. There is no pleural effusion. There is no pneumothorax. There are no acute osseous findings. IMPRESSION: Clear lungs.
--- NOTE | 2018-11-04 23:57 | ER Document Report ---
Entered by FLO LUNDBERG SCRIBE 11/04/18 2219 Acting as scribe for:ROBERT CHOW MD ED General - General Chief Complaint: Syncope Stated Complaint: NUMBNESS,COUGH,SHORTNES OF BREATH Time Seen by Provider: 11/04/18 22:06 Information source: Patient Notes: Patient is a 28-year-old male presenting to the emergency department after suffering a syncopal episode. Patient states that he was making food earlier this evening when he began feeling lightheaded, short of breath. Patient states that he sat down, and after he sat down he went outside to get some fresh air and felt lightheaded and then passed out. Patient confirms that he did fall on the porch. Patient states that he feels like he "cannot breathe with his right lung". This 28-year-old male patient with past medical history of traumatic brain injury and subarachnoid hemorrhage reports he was at home in his kitchen stand ing up making a sandwich when he suddenly felt like his chest was being crushed in could not breathing and on the right side. He sat down briefly, then stood up to go outside to get fresh air. Once he got on the porch, he reports things turned black and he fell out. There was no injury associated with his collapse. At this time he reports he is still in a lot of pain in the right side of his c hest, and it is painful to try to breathe. He also complains of generalized weakness. He denies ever having symptoms like this in the past. He does smoke 1 pack/day. He works as a otr refrigerated cdl truck driver. TRAVEL OUTSIDE OF THE [place] IN LAST 30 DAYS: No COUNTRY TRAVELED TO/FROM: [facility] - Related Data Allergies/Adverse Reactions: risperidone [From Risperdal] Allergy (Verified 09/17/18 15:56) Past Medical History - General Information source: Patient - Social History Smoking Status: Current Every Day Smoker Cigarette use (# per day): Yes Chew tobacco use (# tins/day): No Smoking Education Provided: No Frequency of alcohol use: Social Drug Abuse: None Family History: Reviewed & Not Pertinent - Past Medical History Cardiac Medical History: Reports: Hx Hypercholesterolemia - As teenager, not currently, Hx Hypertension - As teenager, not currently Musculoskeletal Medical History: Reports Hx Musculoskeletal Trauma Traumatic Medical History: Reports: Hx Fractures - Ankle, Hx Traumatic Brain Injury Past Surgical History: Reports: Hx Orthopedic Surgery - Right Ankle - Pins placed, Hx Tonsillectomy, Other - Vasectomy 2016 - Immunizations Immunizations up to date: Yes Review of Systems - Review of Systems Constitutional: No symptoms reported EENT: No symptoms reported Cardiovascular: See HPI, Syncope, Lightheaded Respiratory: See HPI, Short of breath Gastrointestinal: No symptoms reported Genitourinary: No symptoms reported Male Genitourinary: No symptoms reported Musculoskeletal: No symptoms reported Skin: No symptoms reported Hematologic/Lymphatic: No symptoms reported Neurological/Psychological: No symptoms reported -: Yes All other systems reviewed and negative Physical Exam - Vital signs Vitals: Temp Pulse Resp BP Pulse Ox 97.6 F 94 16 141/87 H 99 11/04/18 20:31 11/04/18 20:31 11/04/18 20:31 11/04/18 20:31 11/04/18 20:31 - Notes Notes: Physical Exam: General: Alert, appears well, size frequently. HEENT: Normocephalic. Atraumatic. PERRL. Extraocular movements intact. Oropharynx clear. Neck: Supple. Non-tender. Respiratory: Deep breaths exacerbate pain. No respiratory distress. Clear and equal breath sounds bilaterally. Cardiovascular: Regular rate and rhythm. Abdominal: Normal Inspection. Non-tender. No distension. Normal Bowel Sounds. Back: Non-tender. No deformity or step off. Extremities: Moves all four extremities. Upper extremities: Normal inspection. Normal ROM. Lower extremities: Normal inspection. No edema. Normal ROM. Neurological: Normal cognition. AAOx4. Normal speech. Psychological: Dysthymic affect. Normal Mood. Skin: Warm. Dry. Normal color. Course - Vital Signs Vital signs: Temp Pulse Resp BP Pulse Ox 97.6 F 94 14 141/87 H 100 11/04/18 20:31 11/04/18 20:31 11/04/18 23:00 11/04/18 20:31 11/04/18 23:00 - Laboratory Result Diagrams: 11/04/18 22:13 11/04/18 22:13 Laboratory results interpreted by me: 11/04/18 22:13 WBC 14.5 H RBC 5.74 H Absolute Neutrophils 9.8 H - Diagnostic Test Radiology reviewed: Image reviewed, Reports reviewed - Chest x-ray is unremarkable - EKG Interpretation by Me EKG shows normal: Sinus rhythm, [place], Intervals, QRS Complexes, ST-T Waves Rate: Normal - 89 Rhythm: NSR Voltage: Consistant with LVH When compared to previous EKG there are: No significant change Discharge - Discharge Clinical Impression: Syncope and collapse Chest pain Qualifiers: Chest pain type: unspecified Qualified Code(s): R07.9 - Chest pain, unspecified Condition: Stable Disposition: HOME, SELF-CARE Additional Instructions: Syncopal Episode Syncope (fainting or near-fainting) can occur from many different health problems. Or it can be a simple fainting spell requiring no treatment. It is safe for you to go home, but further evaluation will likely be necessary. Your work-up may include tests for internal bleeding, heart disease, medication problems, or near-strokes. Tests are not always required, however, depending on the nature of your problem. The warning signs of an impending faint include: dizziness, lightheadednes s, nausea, hot flashes, tingling, and weakness. If this happens, lay down and put your feet up, then wait until all of these symptoms have passed before standing up again. If these episodes become recurrent, or if you develop chest pain, heart palpitations, mental confusion, blurred vision, or headache, then you should call the physician, or go to the emergency room. Chest Pain of Unclear Cause The exact cause of your chest pain isn't clear. Fortunately, there is no evidence of a dangerous medical condition. Further testing may be required to find the source of the pain. Most often, we find that this pain is coming from the chest wall -- the muscles or rib joints in the chest. But chest pain can come from the lung and lung lining, the esophagus, the heart valves or heart lining, and even the stomach or gallbladder. Rest. Eat lightly until the pain is gone. We may prescribe medicine for pain and inflammation. You should call the physician immediately if the pain radiates to the shoulder, jaw or arms; if you start to run a fever or develop a cough; or if you develop shortness of breath, or other new or alarming symptoms. Your chest x-ray, EKG, and lab work were all normal. Your syncopal episode may have been due to a vasovagal reaction caused by the chest pain you are experiencing. For now, you should drink plenty of fluids, get plenty of rest. Take Tylenol every 4 hours and ibuprofen every 6-8 hours for chest pain if needed. Follow-up with your primary care provider tomorrow if not improving. RETURN TO THE EMERGENCY ROOM IF ANY NEW OR WORSENING SYMPTOMS. Scribe Attestation: 11/04/18 22:41 I personally performed the services described in the documentation, reviewed and edited the documentation which was dictated to the scribe in my presence, and it accurately records my words and actions. I personally performed the services described in the documentation, reviewed and edited the documentation which was dictated to the scribe in my presence, and it accurately records my words and actions.
[2018-11-05 00:08] VITALS: BP 139/70
--- NOTE | 2018-11-05 08:02 | EKG REPORT ---
SEVERITY:- ABNORMAL ECG - SINUS RHYTHM CONSIDER LEFT VENTRICULAR HYPERTROPHY : Confirmed by: El Collier MD 05-Nov-2018 08:00:36
== END 2018-11-05 00:19 | disposition home or self-care (01) ==
LOC: ER 20:01
DX: R55 Syncope and collapse (principal); R06.02 Shortness of breath; R07.9 Chest pain, unspecified; F17.210 Nicotine dependence, cigarettes, uncomplicated; Z87.820 Personal history of traumatic brain injury
CPT/HCPCS: 93005; 99284; 96361; 96374; 36415; 82553; 82550; 85025; 80053; 81001; 84484; 85379; 71046; 93010; J1885; J7030

== ENCOUNTER 2019-01-28 15:59 | Emergency (ER) | payer SELFPAY ==
--- NOTE | 2019-01-28 16:15 | ER Document Report ---
ED Medical Screen (RME) - General Chief Complaint: Cough Stated Complaint: COUGH,CONGESTION,FEVER,CHILLS Time Seen by Provider: 01/28/19 16:12 Mode of Arrival: Ambulatory Information source: Patient Notes: 28-year-old male presented to ED for cough cold congestion fever up to 101 today. He states he did not get his flu immunization. Patient is alert oriented respirations regular and unlabored speaking in full sentences. He states he feels very tight in his chest and bronchioles and hot and cold flashes. He states he was smoking a pack a day until about 6 months ago he cut back down to 1/2 pack a day he does still continue to smoke 1/2 pack a day. He states he drinks maybe yearly and he does not smoke any marijuana or other illicit drugs. He works at [employer], dates he has had bronchitis a few times throughout his life. I have greeted and performed a rapid initial assessment of this patient. A comprehensive ED assessment and evaluation of the patient, analysis of test results and completion of medical decision making process will be conducted by an additional ED providers. TRAVEL OUTSIDE OF THE [place] IN LAST 30 DAYS: No COUNTRY TRAVELED TO/FROM: [facility] - Related Data Allergies/Adverse Reactions: risperidone [From Risperdal] Allergy (Verified 01/28/19 16:11) Past Medical History - Past Medical History Cardiac Medical History: Reports: Hx Hypercholesterolemia - As teenager, not currently, Hx Hypertension - As teenager, not currently Renal/ Medical History: Denies: Hx Peritoneal Dialysis Musculoskeltal Medical History: Reports Hx Musculoskeletal Trauma Traumatic Medical History: Reports: Hx Fractures - Ankle, Hx Traumatic Brain Injury Past Surgical History: Reports: Hx Orthopedic Surgery - Right Ankle - Pins placed, Hx Tonsillectomy, Other - Vasectomy 2016 - Immunizations Immunizations up to date: Yes Physical Exam - Vital signs Vitals: Temp Pulse Resp BP Pulse Ox 98 F 93 18 144/78 H 100 01/28/19 16:03 01/28/19 16:03 01/28/19 16:03 01/28/19 16:03 01/28/19 16:03 Course - Vital Signs Vital signs: Temp Pulse Resp BP Pulse Ox 98 F 93 18 144/78 H 100 01/28/19 16:03 01/28/19 16:03 01/28/19 16:03 01/28/19 16:03 01/28/19 16:03
--- NOTE | 2019-01-28 16:39 | RADIOLOGY REPORT (SQ) ---
EXAM DESCRIPTION: CHEST 2 VIEWS COMPLETED DATE/TIME: 01/28/2019 4:27 pm REASON FOR STUDY: cough congestion COMPARISON: 11/04/2018 EXAM PARAMETERS: NUMBER OF VIEWS: two views TECHNIQUE: Digital Frontal and Lateral radiographic views of the chest acquired. RADIATION DOSE: NA LIMITATIONS: none FINDINGS: LUNGS AND PLEURA: No opacities, masses or pneumothorax. No pleural effusion. MEDIASTINUM AND HILAR STRUCTURES: No masses or contour abnormalities. HEART AND VASCULAR STRUCTURES: Heart normal size. No evidence for failure. BONES: No acute findings. HARDWARE: None in the chest. OTHER: No other significant finding. IMPRESSION: No focal consolidation or other evidence of acute intrathoracic process. TECHNICAL DOCUMENTATION: JOB ID: [id number] [employer]- All Rights Reserved Reading location - IP/workstation name: [email or web address]
--- NOTE | 2019-01-28 16:55 | EKG REPORT ---
SEVERITY:- NORMAL ECG - SINUS RHYTHM : Confirmed by: El Collier MD 28-Jan-2019 16:54:56
[2019-01-28 17:34] LABS: APPEARANCE,URINE CLEAR; BILIRUBIN,URINE NEGATIVE (NEGATIVE); COLOR,URINE YELLOW; GLUCOSE, URINE NEGATIVE (NEGATIVE); KETONES,URINE NEGATIVE (NEGATIVE); PROTEIN,URINE NEGATIVE (NEGATIVE); URINE SPECIFIC GRAVITY 1.017; UROBILINOGEN,URINE NEGATIVE mg/dL (<2.0)
[2019-01-28 17:48] LABS: A TYPE INFLUENZA AG NEGATIVE (NEGATIVE); B INFLUENZA AG NEGATIVE (NEGATIVE)
[2019-01-28] MEDS ORDERED: BENZONATATE 100 MG CAPSULE PO ONE (18:33)
[2019-01-28] MEDS ORDERED: IBUPROFEN 600 MG TABLET PO ONE (18:33)
[2019-01-28] MEDS ORDERED: IPRATROPIUM/ALBUTEROL 0.5-2.5 MG/3 ML AMPUL NEB ONE (18:36)
[2019-01-28] MEDS ORDERED: ALBUTEROL SULFATE HFA (90 MCG/PUFF) 8 GM MDI (1 MDI/ER DISP) IH PRN (18:38)
--- NOTE | 2019-01-28 18:38 | ER Document Report ---
HPI - HPI Time Seen by Provider: 01/28/19 16:12 Pain Level: 3 Context: Patient is a 28-year-old male who presents to the emergency department with a chief complaint of cough. Patient reports he woke up this morning with cough, nasal congestion, continuous runny nose and fever. Patient reports he has had body aches. Patient reports his temperature has been as high as 101.8. Patient denies nausea, vomiting or diarrhea. Patient reports he does smoke 1/2 pack of cigarettes per day. Patient reports runny nose, left ear pain, sore throat and dry cough. Patient reports he has had sick contacts such as his significant other and her son. He reports they are still sick and have symptoms for the past 5 to 7 days. Patient denies a history of asthma or wheezing today. - REPRODUCTIVE Reproductive: DENIES: : Past Medical History - General Information source: Patient - Social History Smoking Status: Current Every Day Smoker Chew tobacco use (# tins/day): No Frequency of alcohol use: Rare Drug Abuse: None Lives with: Family Family History: Reviewed & Not Pertinent Patient has suicidal ideation: No Patient has homicidal ideation: No - Past Medical History Cardiac Medical History: Reports: Hx Hypercholesterolemia - As teenager, not currently, Hx Hypertension - As teenager, not currently Pulmonary Medical History: Reports: None EENT Medical History: Reports: None Neurological Medical History: Reports: None Endocrine Medical History: Reports: None Renal/ Medical History: Reports: None. Denies: Hx Peritoneal Dialysis Malignancy Medical History: Reports None GI Medical History: Reports: None Musculoskeletal Medical History: Reports Hx Musculoskeletal Trauma Skin Medical History: Reports None Psychiatric Medical History: Reports: None Traumatic Medical History: Reports: Hx Fractures - Ankle, Hx Traumatic Brain Injury Infectious Medical History: Reports: None Past Surgical History: Reports: Hx Orthopedic Surgery - Right Ankle - Pins placed, Hx Tonsillectomy, Other - Vasectomy 2016 - Immunizations Immunizations up to date: Yes Vertical Provider Document - CONSTITUTIONAL Agree With Documented VS: Yes Exam Limitations: No Limitations General Appearance: No Apparent Distress - INFECTION CONTROL TRAVEL OUTSIDE OF THE [place] IN LAST 30 DAYS: No COUNTRY TRAVELED TO/FROM: [facility] - HEENT HEENT: Atraumatic, Normocephalic Notes: Patient has a significantly large amount of nasal drainage bilaterally. + Clear rhinorrhea. No sinus pressure. Patient does not have any tragus or mastoid tenderness bilaterally. Patient does have a significant amount of cerumen in bilateral ear canals. Patient's airway is patent, oropharynx is slightly erythematous without edema. Uvula midline. No tonsillar hypertrophy. No cervical lymphadenopathy. - NECK Neck: Normal Inspection - RESPIRATORY Respiratory: Breath Sounds Normal, No Respiratory Distress Notes: Intermittent dry congested cough during examination. - CARDIOVASCULAR Cardiovascular: Regular Rate, Regular Rhythm - GI/ABDOMEN Gastrointestinal: Abdomen Soft, Abdomen Non-Tender - MUSCULOSKELETAL/EXTREMETIES Musculoskeletal/Extremeties: FROM, Non-Tender, No Edema - NEURO Level of Consciousness: Awake, Alert, Appropriate - DERM Integumentary: Warm, Dry, No Rash Course - Re-evaluation Re-evalutation: 01/28/19 19:16 Patient states he feels much better after receiving the DuoNeb. Patient reports he feels like in his lower lungs he is able to take a big more sufficient breath. I did give the patient an albuterol inhaler to go home with, 2 puffs every 4 hours as needed. Patient is nontoxic-appearing and stable for discharge. - Vital Signs Vital signs: Temp Pulse Resp BP Pulse Ox 98 F 93 18 144/78 H 100 01/28/19 16:03 01/28/19 16:03 01/28/19 16:03 01/28/19 16:03 01/28/19 16:03 - Laboratory Laboratory results interpreted by me: 01/28/19 18:33 Laboratory 01/28/19 01/28/19 16:45 16:45 Urine Color YELLOW Urine Appearance CLEAR Urine pH 8.0 Ur Specific [place] 1.017 Urine Protein NEGATIVE Urine Glucose (UA) NEGATIVE Urine Ketones NEGATIVE Urine Blood NEGATIVE Urine Nitrite (Reflex) NEGATIVE Urine Bilirubin NEGATIVE Urine Urobilinogen NEGATIVE Leukocyte Esterase Rfl NEGATIVE Urine RBC (Auto) 1 Urine WBC (Reflex) < 1 Urine Mucus (Auto) RARE Urine Ascorbic Acid NEGATIVE Influenza A (Rapid) NEGATIVE Influenza B (Rapid) NEGATIVE - Diagnostic Test Radiology reviewed: Reports reviewed Radiology results interpreted by me: 01/28/19 18:33 Chest X-Ray 01/28/19 16:15 IMPRESSION: No focal consolidation or other evidence of acute intrathoracic process. - EKG Interpretation by Me Additional EKG results interpreted by me: 01/28/19 18:42 Patient's EKG shows sinus rhythm with a heart of 95. Patient's NV interval is 156, QT 340 and QTc is 428. Patient has a normal axis deviation. There is no significant ST segment changes in consecutive leads. Discharge - Discharge Clinical Impression: Cough, Congestion of nasal sinus, Rhinorrhea URI (upper respiratory infection) Qualifiers: URI type: unspecified viral URI Qualified Code(s): J06.9 - Acute upper respiratory infection, unspecified Condition: Stable Disposition: HOME, SELF-CARE Additional Instructions: Today you are seen in the emergency department for a cough. Your symptoms are consistent with an upper respiratory illness. Typically this can last 10 to 14 days. Please drink plenty of fluids. Take Tylenol and ibuprofen as needed for pain. You can use [id number] decongestants or cough suppressants. Please seek medical attention if you develop fever, shortness of breath, worsening symptoms, high fever, neck pain, wheezing or any concerning signs or symptoms. Your chest x-ray was negative for pneumonia. Your flu test was negative. Your urinalysis was also negative and did not show any signs of infection. UPPER RESPIRATORY ILLNESS: You have a viral infection of the respiratory passages -- a "cold." This common infection causes nasal congestion, drainage, and often sore throat and cough. It is highly contagious. The disease usually lasts about 10 to 14 days. There is no "cure" for the viral infection -- it must run its course. If there is a complication, such as bacterial infection in the nose, sinuses, middle ear, or bronchial tubes, antibiotics may be required. The antibiotics won't affect the virus. Drink plenty of fluids. A humidifier may help. An expectorant medication or decongestant may make you more comfortable. Use acetaminophen or ibuprofen for fever or aches. See the doctor if fever persists over two days, if there is any significant worsening of your symptoms, or if you simply fail to improve as expected. BRONCHOSPASM: You have tightness in the bronchial tubes, called bronchospasm. This often occurs with bronchial infections. Allergies, inhaled chemicals, and polluted or cold air can also provoke bronchospasm. It's more likely in patients with asthma in the family. Emergency treatment of bronchospasm may include adrenaline shots or bronchodilator aerosol. You may feel lightheaded and have a rapid pulse for an hour or two. Rest and get plenty of fluids. At home, we'll treat you with a bronchodilator inhaler. Antibiotics and corticosteroids may be required for some patients. Until you recover, avoid chemical fumes, dusts, pollens, and exercising in very cold or dry air. If you smoke, stop now!! If you develop a fever, increased wheezing, chest pain, or severe shortness of breath, you should contact the doctor immediately. DECONGESTANT MEDICATION: A decongestant medicine has been prescribed. Often this medicine is combined in the same tablet with an antihistamine or expectorant. This type of medicine is helpful in treating a bad cold or sinus condition, as well as in treatment of the nasal congestion of hay fever. It is not of much benefit for lung infections. Decongestant medicines are related to stimulants. They can cause an increase in blood pressure and heart rate. Persons with heart disease and high blood pressure should not take decongestants without discussing this with the physician. If you develop palpitations, chest pain, headache, or tremors, stop the medicine and consult your physician. COUGH-SUPPRESSANT & EXPECTORANT MEDICATION: You are to use a cough medication as needed for relief of symptoms. This medicine is a combination of an expectorant (to make the mucous thinner and more easily "coughed up") and a cough suppressant (to reduce the frequency of coughing). The cough-suppressant medicine is related to narcotics. You may experience mild nausea and sleepiness. Some patients who are very sensitive to narcotics may have stomach pain from this medicine. Taking the medicine with food reduces these side effects. Do not drive or work with machinery until you know how this medicine affects you. The expectorant should have no side effects. Iodine-containing expectorants (such as organidin) should not be taken by persons with active thyroid disease unless approved by your doctor. Call the doctor if you develop shortness of breath, hives, rash, itching, lightheadedness, or severe nausea and vomiting. USE OF ACETAMINOPHEN (Tylenol): Acetaminophen may be taken for pain relief or fever control. It's much safer than aspirin, offering a wider range of "safe" dosages. It is safe during . Some brand names are Tylenol, Panadol, Datril, Anacin 3, Tempra, and Liquiprin. Acetaminophen can be repeated every four hours. The following are maximum recommended dosages: >89 pounds or adults 650 mg to 900 mg Acetaminophen can be repeated every four hours. Maximum dose not to exceed 4000 mg a day. SMOKING: If you smoke, you should stop smoking. The tar and chemicals in cigarette smoke are harmful. Smoking has been shown to cause: emphysema chronic bronchitis lung cancer mouth and throat cancer stomach and pancreas cancer premature aging defects In addition, smoking increases ear and lung infections in children of smokers. FOLLOW-UP CARE: If you have been referred to a physician for follow-up care, call the physicians office for an appointment as you were instructed or within the next two days. If you experience worsening or a significant change in your symptoms, notify the physician immediately or return to the Emergency Department at any time for re-evaluation. Prescriptions: Benzonatate [Tessalon Perles 100 mg Capsule] 100 mg PO Q8HP PRN #40 capsule PRN Reason: Forms: Smoking Cessation Education, Return to Work Referrals: [facility] [Provider Group] - Follow up as needed
[2019-01-28 19:32] VITALS: BP 156/81
== END 2019-01-28 19:33 | disposition home or self-care (01) ==
LOC: ER 15:59
DX: J06.9 Acute upper respiratory infection, unspecified (principal); R09.81 Nasal congestion; M79.10 Myalgia, unspecified site; F17.210 Nicotine dependence, cigarettes, uncomplicated
CPT/HCPCS: 93005; 81001; 87804; 71046; 93010; J3490; J7620

== ENCOUNTER 2019-02-03 21:35 | Emergency (ER) | payer SELFPAY ==
[2019-02-04] MEDS ORDERED: PREDNISONE 20 MG TABLET PO ONE (01:48)
--- NOTE | 2019-02-04 01:50 | ER Document Report ---
ED Respiratory Problem - General Chief Complaint: Cough Stated Complaint: DIFFICULTY BREATHING/CONGESTION Time Seen by Provider: 02/04/19 01:08 Notes: Patient is a 28-year-old male that comes emergency department for chief complaint of cough, fever/chills. He does have some congestion and some ear pain on the left side as well. States that he has been sick for almost 2 weeks now, he did have a sick contact initially with a child with an upper respiratory infection, he states that he was seen, had a negative chest x-ray, started to improve, however he states he has had chills, fevers, and worsening cough for the past 2 days now. He does smoke, denies history of asthma, denies any daily medications. He states he was treated for anger issues as a child but he has no official medical diagnosis. TRAVEL OUTSIDE OF THE [place] IN LAST 30 DAYS: No COUNTRY TRAVELED TO/FROM: [facility] - Related Data Allergies/Adverse Reactions: risperidone [From Risperdal] Allergy (Verified 02/03/19 22:09) Past Medical History - General Information source: Patient - Social History Smoking Status: Current Every Day Smoker Smoking Education Provided: Yes - <3 min Frequency of alcohol use: None Drug Abuse: None Lives with: Family Family History: Reviewed & Not Pertinent Patient has suicidal ideation: No Patient has homicidal ideation: No - Past Medical History Cardiac Medical History: Reports: Hx Hypercholesterolemia - As teenager, not currently, Hx Hypertension - As teenager, not currently Renal/ Medical History: Denies: Hx Peritoneal Dialysis Musculoskeletal Medical History: Reports Hx Musculoskeletal Trauma Traumatic Medical History: Reports: Hx Fractures - Ankle, Hx Traumatic Brain Injury Past Surgical History: Reports: Hx Orthopedic Surgery - Right Ankle - Pins placed, Hx Tonsillectomy, Other - Vasectomy 2016 - Immunizations Immunizations up to date: Yes Review of Systems - Review of Systems Constitutional: See HPI EENT: See HPI Cardiovascular: No symptoms reported Respiratory: See HPI Gastrointestinal: No symptoms reported Genitourinary: No symptoms reported Male Genitourinary: No symptoms reported Musculoskeletal: No symptoms reported Skin: No symptoms reported Hematologic/Lymphatic: No symptoms reported Neurological/Psychological: No symptoms reported Physical Exam - Vital signs Vitals: Temp Pulse Resp BP Pulse Ox 98.7 F 92 16 141/87 H 93 02/03/19 22:01 02/03/19 22:01 02/03/19 22:01 02/03/19 22:01 02/03/19 22:01 - Notes Notes: GENERAL: Alert, interacts well. No acute distress. HEAD: Normocephalic, atraumatic. EYES: Pupils equal, round, and reactive to light. Extraocular movements intact. ENT: Oral mucosa moist, tongue midline. Oropharynx unremarkable. Airway patent. Nares patent with mild congestion, no nasal septal hematoma, TM's intact with borderline erythema of the tympanic membranes but no changes otherwise. NECK: Full range of motion. Supple. Trachea midline. LUNGS: Clear to auscultation bilaterally, no wheezes, rales, or rhonchi. No respiratory distress. Frequent tight coughing episodes. HEART: Regular rate and rhythm. No murmur ABDOMEN: Soft, non-tender. Non-distended. Bowel sounds present in all 4 quadrants. GENITOURINARY: Deferred EXTREMITIES: Moves all 4 extremities spontaneously. No edema, normal radial and dorsalis pedis pulses bilaterally. No cyanosis. BACK: no cervical, thoracic, lumbar midline tenderness. No saddle anesthesia, normal distal neurovascular exam. Moves all extremities in full range of motion. NEUROLOGICAL: Alert and oriented x3. Normal speech. Cranial nerves II through XII grossly intact. PSYCH: Normal affect, normal mood. SKIN: Warm, dry, normal turgor. No rashes or lesions noted. Course - Re-evaluation Re-evalutation: Patient with nonproductive coughing episodes on exam, no wheezing, pulse ox was low initially but this is rechecked without intervention and was normal. Patient has no respiratory distress. Chest x-ray unremarkable, influenza negative. No fever here. Based on his reported symptoms I suspect he has ongoing bronchitis in the setting of smoking. Discussed smoking cessation, he will be treated with prednisone, provided with a spacer and inhaler, provided with work-release. Discussed all details with patient at length. Discussed follow-up and return precautions. Patient states appreciation and agreement. Stable at time of discharge. - Vital Signs Vital signs: Temp Pulse Resp BP Pulse Ox 97.7 F 69 12 155/97 H 97 02/04/19 03:48 02/04/19 03:48 02/04/19 03:48 02/04/19 03:48 02/04/19 03:48 Discharge - Discharge Clinical Impression: Cough, Tobacco abuse Upper respiratory infection Qualifiers: URI type: unspecified URI Qualified Code(s): J06.9 - Acute upper respiratory infection, unspecified Condition: Stable Disposition: HOME, SELF-CARE Additional Instructions: Your influenza test is negative, your chest x-ray does not show pneumonia. I recommend the prednisone, nasal spray, and antihistamine. You can take [id number] medications in addition to this. Symptoms should gradually resolve with time. Stop smoking. Follow-up with primary care. Come back if you worsen including difficulty breathing, fevers, severe pain in your chest, passing out, or any other concerning or worsening symptoms. Prescriptions: Prednisone [Deltasone 20 mg Tablet] 3 tab PO DAILY 5 Days tablet Fluticasone Propionate [Flonase Nasal [place] 50 Mcg/[place] 16 gm] 2 sprays NASL Q12 #1 inhaler Forms: Return to Work
--- NOTE | 2019-02-04 02:27 | RADIOLOGY REPORT (SQ) ---
EXAM DESCRIPTION: XR CHEST 2 VIEWS COMPLETED DATE/TME: 02/04/2019 01:49 CLINICAL HISTORY: 28 years Male, productive cough x 2 weeks, fevers COMPARISON: 01/28/19 NUMBER OF VIEWS/TECHNIQUE: 2, Frontal, Lateral FINDINGS: Adequate lung volume, clear parenchyma, normal cardiac silhouette, and intact bony thorax. IMPRESSION: No acute cardiopulmonary findings.
[2019-02-04 02:39] LABS: A TYPE INFLUENZA AG NEGATIVE (NEGATIVE); B INFLUENZA AG NEGATIVE (NEGATIVE)
[2019-02-04] MEDS ORDERED: ALBUTEROL SULFATE HFA (90 MCG/PUFF) 8 GM MDI (1 MDI/ER DISP) IH ONE (03:23)
[2019-02-04 03:49] VITALS: BP 155/97
== END 2019-02-04 03:50 | disposition home or self-care (01) ==
LOC: ER 21:35
DX: J06.9 Acute upper respiratory infection, unspecified (principal); R09.81 Nasal congestion; R50.9 Fever, unspecified; F17.200 Nicotine dependence, unspecified, uncomplicated
CPT/HCPCS: 87804; 71046; J7512; J3490

== ENCOUNTER 2019-03-17 10:06 | Emergency (ER) | payer SELFPAY ==
[2019-03-17 10:15] VITALS: BP 132/74
[2019-03-17] MEDS ORDERED: DEXAMETHASONE SOD PHOS INJ 10 MG/1 ML VIAL IM ONE (10:33)
[2019-03-17] MEDS ORDERED: LIDOCAINE 5% (700 MG) TRANSDERMAL ADH..PATCH TP ONE (10:33)
[2019-03-17] MEDS ORDERED: KETOROLAC TROMETHAMINE 60 MG/2 ML SDV IM ONE (10:33)
[2019-03-17] MEDS ORDERED: CYCLOBENZAPRINE HCL 10 MG TABLET PO ONE (10:34)
--- NOTE | 2019-03-17 10:50 | ER Document Report ---
HPI - HPI Time Seen by Provider: 03/17/19 10:28 Pain Level: 5 Notes: Otherwise healthy 28-year-old male presenting to the emergency department chief complaint of acute on chronic back pain. Patient reports low back pain across his entire lumbar region but worsening to the right side and down into his right buttocks. Denies any loss of control of bowel or bladder, denies any urinary retention or saddle anesthesia. Patient is otherwise not been ill and has not had fever. - CONSTITUTIONAL Constitutional: DENIES: Fever, Chills - EENT EENT: DENIES: Sore Throat, Ear Pain, Eye problems - NEURO Neurology: DENIES: Headache, Weakness, Vision blurred, Dizzinesss / Vertigo - CARDIOVASCULAR Cardiovascular: DENIES: Chest pain - RESPIRATORY Respiratory: DENIES: Trouble Breathing, Coughing - GASTROINTESTINAL Gastrointestinal: DENIES: Abdominal Pain, Black / Bloody Stools - URINARY Urinary: DENIES: Dysuria, Urgency, Frequency - REPRODUCTIVE Reproductive: DENIES: : - MUSCULOSKELETAL Musculoskeletal: DENIES: Extremity pain Past Medical History - General Information source: Patient - Social History Smoking Status: Former Smoker Chew tobacco use (# tins/day): No Frequency of alcohol use: Rare Drug Abuse: None Family History: Reviewed & Not Pertinent Patient has suicidal ideation: No Patient has homicidal ideation: No - Past Medical History Cardiac Medical History: Reports: Hx Hypercholesterolemia - As teenager, not currently, Hx Hypertension - As teenager, not currently Renal/ Medical History: Denies: Hx Peritoneal Dialysis Musculoskeletal Medical History: Reports Hx Musculoskeletal Trauma Traumatic Medical History: Reports: Hx Fractures - Ankle, Hx Traumatic Brain Injury Past Surgical History: Reports: Hx Orthopedic Surgery - Right Ankle - Pins placed, Hx Tonsillectomy, Other - Vasectomy 2016 - Immunizations Immunizations up to date: Yes Vertical Provider Document - CONSTITUTIONAL Notes: PHYSICAL EXAMINATION: GENERAL: Well-appearing, well-nourished and in no acute distress. HEAD: Atraumatic, normocephalic. EYES: Pupils equal round extraocular movements intact, conjunctiva are normal. ENT: Nares patent NECK: Normal range of motion LUNGS: No respiratory distress Musculoskeletal: Tenderness to palpation to lumbar paraspinous area, no vertebral tenderness, step-off or deformity. NEUROLOGICAL: Face symmetric. Tongue protrudes midline. Extraocular motions intact. Pupils are 2 mm and equally reactive. Normal speech, normal gait. 5 out of 5 strength in both the distal and proximal upper and lower extremities bilaterally. Sensation is grossly intact throughout. Finger to nose testing normal. Pronator drift normal. PSYCH: Normal mood, normal affect. SKIN: Warm, Dry, normal turgor, no rashes or lesions noted. - INFECTION CONTROL TRAVEL OUTSIDE OF THE [place] IN LAST 30 DAYS: No COUNTRY TRAVELED TO/FROM: [facility] Course - Re-evaluation Re-evalutation: Presentation of a well appearing patient complaining of acute on chronic back pain. No rapid progression of symptoms, systemic symptoms including fevers, chills, weight loss, history of recent bacterial infection, bilateral symptoms, numbness, weakness, difficulty walking, urinary retention or bowel incontinence, personal history of cancer, immunosuppression, diabetes, known AAA, or history of IV drug use. Exam is without point tenderness over vertebral bodies, pulsatile abdominal mass, and patient has symmetric and intact lower extremity strength, sensation, and reflexes without clonus. 2+ symmetric medial malleolar and dorsalis pedis pulses Based on history and physical, I have a very low suspicion of a concerning etiology of pain including epidural compression syndrome, spinal infection, transverse myelitis, malignancy, abdominal aortic aneurysm, renal colic, acute lower extremity claudication, neurogenic claudication, ankylosing spondylitis, or other intra-abdominal process. Due to absence of concerning risk factors in history and physical as well as absence of rapidly progressive, severe, or bilateral symptoms, will defer imaging at this point. - Vital Signs Vital signs: Temp Pulse Resp BP Pulse Ox 98.1 F 93 22 H 132/74 H 100 03/17/19 10:25 03/17/19 10:14 03/17/19 10:25 03/17/19 10:14 03/17/19 10:25 Discharge - Discharge Clinical Impression: Back pain Qualifiers: Back pain location: low back pain Chronicity: unspecified Back pain laterality: unspecified Sciatica presence: with sciatica Sciatica laterality: sciatica of right side Qualified Code(s): M54.41 - Lumbago with sciatica, right side Condition: Stable Disposition: HOME, SELF-CARE Additional Instructions: You have been seen in the Emergency Department (ED) today for back pain. Your workup and exam have not shown any acute abnormalities and you are likely suffering from muscle strain or possible problems with your discs, but there is no treatment that will fix your symptoms at this time. Please take the muscle relaxer that has been prescribed as directed. You should also purchase a local lidocaine cream such as "aspercreme with lidocaine" and use per bottle instructions to the affected area. Apply heat to the area as often as you are able. Continue to keep active and avoid prolonged periods of bed rest. Please follow up with your doctor as soon as possible regarding today's ED visit and your back pain. Return to the ED for worsening back pain, fever, weakness or numbness of either leg, or if you develop either (1) an inability to urinate or have bowel movements, or (2) loss of your ability to control your bathroom functions (if you start having "accidents"), or if you develop other new symptoms that concern you.concern you. Prescriptions: Cyclobenzaprine HCl [Flexeril 10 mg Tablet] 10 mg PO TIDP PRN #20 tab PRN Reason:
== END 2019-03-17 11:18 | disposition home or self-care (01) ==
LOC: ER 10:06
DX: M54.41 Lumbago with sciatica, right side (principal); G89.29 Other chronic pain; Z87.891 Personal history of nicotine dependence
CPT/HCPCS: 99283; 96372; J1885; J1100

== ENCOUNTER 2019-08-11 20:28 | Emergency (ER) | payer SELFPAY ==
--- NOTE | 2019-08-11 20:36 | ER Document Report ---
ED Medical Screen (RME) - General Chief Complaint: Swelling Stated Complaint: SWELLING/POSS BUG BITE Time Seen by Provider: 08/11/19 20:35 Mode of Arrival: Ambulatory Information source: Patient Notes: 29-year-old male presents with complaints of abscess to his left thigh. Reports he recently had a bug bite in the area. Reports area crusted up. Now is firm swollen area to the left upper thigh. Denies history of MRSA. Denies fever vomiting diarrhea. She reports he has a very stressful job so his stomach is always messed up. I have greeted and performed a rapid initial assessment of this patient. A comprehensive ED assessment and evaluation of the patient, analysis of test results and completion of the medical decision making process will be conducted by additional ED providers. TRAVEL OUTSIDE OF THE [place] IN LAST 30 DAYS: No - Related Data Allergies/Adverse Reactions: risperidone [From Risperdal] Allergy (Verified 02/03/19 22:09) Past Medical History - Past Medical History Cardiac Medical History: Reports: Hx Hypercholesterolemia - As teenager, not currently, Hx Hypertension - As teenager, not currently Renal/ Medical History: Denies: Hx Peritoneal Dialysis Musculoskeltal Medical History: Reports Hx Musculoskeletal Trauma Traumatic Medical History: Reports: Hx Fractures - Ankle, Hx Traumatic Brain Injury Past Surgical History: Reports: Hx Orthopedic Surgery - Right Ankle - Pins placed, Hx Tonsillectomy, Other - Vasectomy 2016 - Immunizations Immunizations up to date: Yes Physical Exam - Vital signs Vitals: Temp Pulse Resp BP Pulse Ox 98.3 F 90 20 155/87 H 98 08/11/19 20:32 08/11/19 20:32 08/11/19 20:32 08/11/19 20:32 08/11/19 20:32 Course - Vital Signs Vital signs: Temp Pulse Resp BP Pulse Ox 98.3 F 90 20 155/87 H 98 08/11/19 20:32 08/11/19 20:32 08/11/19 20:32 08/11/19 20:32 08/11/19 20:32
[2019-08-11 20:38] VITALS: BP 155/87
[2019-08-11] MEDS ORDERED: CEPHALEXIN 500 MG CAPSULE PO ONE (20:52)
--- NOTE | 2019-08-11 20:59 | ER Document Report ---
HPI - HPI Patient complains to provider of: cellulitis Time Seen by Provider: 08/11/19 20:35 Onset: Other - 2-week Onset/Duration: Gradual Quality of pain: Burning Severity: Moderate Pain Level: 3 Context: 29-year-old male presented to ED for complaint of pain to the left upper thigh. He states he got an insect bite about 2 weeks ago. He states that had a little pus pocket on it and then started swelling and has been painful since then. He states he has been cleaning it with soap and water taking ibuprofen and using Epson salt but is continued to have pain. Patient is alert oriented respirations regular nonlabored speaking in full sentences. Associated Symptoms: Other - Cellulitis to the left thigh Exacerbated by: Movement, Walking Relieved by: Denies Similar symptoms previously: Yes Recently seen / treated by doctor: No - ROS ROS below otherwise negative: Yes - CONSTITUTIONAL Constitutional: DENIES: Fever, Chills - EENT EENT: DENIES: Sore Throat, Ear Pain, Nasal Drainage-Clear, Nasal Drainage- Purulent, Congestion, Eye problems - CARDIOVASCULAR Cardiovascular: DENIES: Chest pain - RESPIRATORY Respiratory: DENIES: Trouble Breathing, Coughing - GASTROINTESTINAL Gastrointestinal: DENIES: Abdominal Pain, Nausea, Patient vomiting, Diarrhea, Constipation, Black / Bloody Stools - URINARY Urinary: DENIES: Dysuria, Urgency, Frequency - REPRODUCTIVE Reproductive: DENIES: :, Postmenopausal, Abnormal bleeding / discharge - MUSCULOSKELETAL Musculoskeletal: REPORTS: Extremity pain - Left thigh insect bite celluli - DERM Skin Color: Barnard Skin Problems: None Past Medical History - General Information source: Patient - Social History Smoking Status: Former Smoker Cigarette use (# per day): No Frequency of alcohol use: Rare Drug Abuse: None Occupation: [employer] Lives with: Family Family History: Reviewed & Not Pertinent Patient has suicidal ideation: No Patient has homicidal ideation: No - Past Medical History Cardiac Medical History: Reports: Hx Hypercholesterolemia - As teenager, not currently, Hx Hypertension - As teenager, not currently Pulmonary Medical History: Reports: None EENT Medical History: Reports: None Neurological Medical History: Reports: None Endocrine Medical History: Reports: None Renal/ Medical History: Reports: None Malignancy Medical History: Reports None GI Medical History: Reports: None Musculoskeletal Medical History: Reports Hx Musculoskeletal Trauma Skin Medical History: Reports None Psychiatric Medical History: Reports: Other - Anger issues Traumatic Medical History: Reports: Hx Fractures - Ankle, Hx Traumatic Brain Inj ury Infectious Medical History: Reports: None Past Surgical History: Reports: Hx Orthopedic Surgery - Right Ankle - Pins placed, Hx Tonsillectomy, Other - Vasectomy 2016 - Immunizations Immunizations up to date: Yes Vertical Provider Document - CONSTITUTIONAL Agree With Documented VS: Yes Exam Limitations: No Limitations - INFECTION CONTROL TRAVEL OUTSIDE OF THE [place] IN LAST 30 DAYS: No - HEENT HEENT: Atraumatic, Normal ENT Exam, Normocephalic, PERRLA - NECK Neck: Normal Inspection, Supple, Thyroid Normal - RESPIRATORY Respiratory: Breath Sounds Normal, No Respiratory Distress, Chest Non-Tender - CARDIOVASCULAR Cardiovascular: Regular Rate, Regular Rhythm - NEURO Level of Consciousness: Awake, Alert, Appropriate Motor/Sensory: No Motor Deficit, No Sensory Deficit, No Pronator Drift - DERM Integumentary: negative: No Rash - Small infected insect bite to the left thigh with cellulitis about 2 inches diameter very mildly light pink no fluctuance very soft Course - Vital Signs Vital signs: Temp Pulse Resp BP Pulse Ox 98.3 F 90 20 155/87 H 98 08/11/19 20:32 08/11/19 20:32 08/11/19 20:32 08/11/19 20:32 08/11/19 20:32 Discharge - Discharge Clinical Impression: Cellulitis to insect bite left thigh Condition: Stable Disposition: HOME, SELF-CARE Additional Instructions: CELLULITIS: You have an infection of your skin and underlying soft tissues called cellulitis. This is due to bacteria, which can enter through any break in the skin, or even through an irritated hair follicle. Untreated, cellulitis will usually worsen. Antibiotics are required. Usually, warm packs or warm soaks, and elevation of the infected area are recommended. You should start getting better within 24 to 36 hours. Most infections respond quickly to the right medication. Follow-up care is important, however, to check for abscess (boil) formation, unsuspected foreign body, or resistant infection. If you develop fever, chills, or if the area of infection is becoming rapidly more swollen or painful, call the doctor at once. Cephalexin The antibiotic you've been prescribed is a member of the cephalosporin class. This type of antibiotic covers a wide variety of infections, including those of the skin, lungs, and urinary tract. It's useful for staph infections. This antibiotic is slightly similar to the penicillin family. In rare cases, a person who is allergic to penicillin will also be allergic to this medication. If you have had a severe allergic reaction to penicillin, and have not taken this antibiotic since that time, notify your doctor. Antibiotics which cover many germs ("broad spectrum" antibiotics) are more likely to cause diarrhea or "yeast" infections. Women prone to vaginal yeast problems may suffer an attack after taking this antibiotic. In infants, oral thrush (white spots "stuck" on the cheek) or yeast diaper rash may result. See your doctor if these problems occur. Call at once if you develop itching, hives, shortness of breath, or lightheadedness. Ibuprofen Ibuprofen is an excellent, safe drug for pain control. In addition, it has potent antiinflammatory effects which are beneficial, especially in the treatment of injuries, arthritis, or tendonitis. It's best to take ibuprofen with food. Persons with ulcer disease or allergy to aspirin should notify their physician of this before taking ibuprofen. Take the medication exactly as prescribed. Don't take additional doses unless instructed to do so by your doctor. If you develop wheezing, shortness of breath, hives, faintness, stomach pain, vomiting, or dark black stools, return for re-evaluation at once. Epsom Salt Soaks Soak the wound area in a container of warm epsom salt water. If you can't get the wound area into a bucket or edmondson, use a folded towel soaked in the epsom salt solution and apply to the area. Use clean hot tap water (about the temperature of a very warm bath), mixing in about one (1) teaspoon for every pint of water. Two gallon --> 16 teaspoons Epsom Salts One gallon --> 8 teaspoons Epsom Salts Two quarts --> 4 teaspoons Epsom Salts One quart --> 2 teaspoons Epsom Salts Soak the wound for about 20 minutes while gently moving it around in the water. Repeat this four (4) times a day. FOLLOW-UP CARE: If you have been referred to a physician for follow-up care, call the physicians office for an appointment as you were instructed or within the next two days. If you experience worsening or a significant change in your symptoms, notify the physician immediately or return to the Emergency Department at any time for re-evaluation. Prescriptions: Cephalexin Monohydrate [Keflex 500 mg Capsule] 500 mg PO Q6H 5 Days #20 capsule Ibuprofen [Motrin 800 mg Tablet] 800 mg PO Q8H PRN #14 tab PRN Reason: Forms: Elevated Blood Pressure Referrals: [facility] [Provider Group] - Follow up as needed [facility] [Provider Group] - Follow up as needed [facility] [Provider Group] - Follow up as needed
[2019-08-11] MEDS ORDERED: IBUPROFEN 800 MG TABLET PO ONE (21:00)
== END 2019-08-11 21:05 | disposition home or self-care (01) ==
LOC: ER 20:28
DX: S70.362A Insect bite (nonvenomous), left thigh, initial encounter (principal); L03.116 Cellulitis of left lower limb; W57.XXXA Bitten or stung by nonvenomous insect and other nonvenomous arthropods, initial encounter; Z87.891 Personal history of nicotine dependence
CPT/HCPCS: 99281

== ENCOUNTER 2019-12-08 09:51 | Emergency (ER) | payer SELFPAY ==
--- NOTE | 2019-12-08 10:34 | ER Document Report ---
ED Medical Screen (RME) - General Chief Complaint: Chest Pain Stated Complaint: CHEST PAIN Time Seen by Provider: 12/08/19 10:31 Mode of Arrival: Ambulatory Information source: Patient Notes: 29-year-old female presented to ED for complaint of chest pain. He states p.m. last night he had some vague irritation in his chest and left shoulder. He states as the night progressed the pain got much worse went into his neck and his jaw. He states this morning his pain is much worse and it goes into his shoulder his neck and his jaw and his ear he states that his boss told him at work that he needed to go to the ER and have this examined. He states he has a history of high blood pressure cholesterol TBI and a ankle fracture that was repaired. He states that one time he was told he had a minor heart attack and then another doctor saw him and told him that he had not had a mild heart attack. He is alert oriented respirations regular nonlabored speaking in full sentences. He states he is a former cigarette smoker now he vapes. He does occasionally drink does not use any drugs. His EKG is sinus rhythm. Regular rate rhythm no abnormalities noted I have greeted and performed a rapid initial assessment of this patient. A comprehensive ED assessment and evaluation of the patient, analysis of test results and completion of medical decision making process will be conducted by an additional ED providers. TRAVEL OUTSIDE OF THE [place] IN LAST 30 DAYS: No - Related Data Allergies/Adverse Reactions: risperidone [From Risperdal] Allergy (Verified 12/08/19 10:24) Past Medical History - Past Medical History Cardiac Medical History: Reports: Hx Hypercholesterolemia - As teenager, not currently, Hx Hypertension - As teenager, not currently Renal/ Medical History: Denies: Hx Peritoneal Dialysis Musculoskeltal Medical History: Reports Hx Musculoskeletal Trauma Traumatic Medical History: Reports: Hx Fractures - Ankle, Hx Traumatic Brain Injury Past Surgical History: Reports: Hx Orthopedic Surgery - Right Ankle - Pins placed, Hx Tonsillectomy, Other - Vasectomy 2016 - Immunizations Immunizations up to date: Yes Physical Exam - Vital signs Vitals: Temp Pulse Resp BP Pulse Ox 98.3 F 82 18 142/82 H 97 12/08/19 10:06 12/08/19 10:06 12/08/19 10:06 12/08/19 10:12/08/19 10:06 Course - Vital Signs Vital signs: Temp Pulse Resp BP Pulse Ox 98.3 F 82 18 142/82 H 97 12/08/19 10:06 12/08/19 10:06 12/08/19 10:06 12/08/19 10:06 12/08/19 10:06
[2019-12-08 11:02] LABS: ABSOLUTE BASOPHILS # (AUTO) 0.1 10^3/uL (0.0-0.2); ABSOLUTE EOSINOPHILS # (AUTO) 0.1 10^3/uL (0.0-0.6); ABSOLUTE LYMPHOCYTES (AUTO) 2.3 10^3/uL (0.5-4.7); ABSOLUTE MONOCYTES (AUTO) 0.5 10^3/uL (0.1-1.4); ABSOLUTE NEUT (AUTO) 4.8 10^3/uL (1.7-8.2); BASOPHILS % (AUTO) 0.7 % (0-2); EOSINOPHILS % (AUTO) 1.3 % (0-6); HEMATOCRIT 46.1 % (37.9-51.0); HEMOGLOBIN 16.2 g/dL (13.5-17.0); LYMPHOCYTES % (AUTO) 29.6 % (13-45); MEAN CORPUSCULAR HEMOGLOBIN 28.8 pg (27.0-33.4); MEAN CORPUSCULAR HGB CONC 35.2 g/dL (32.0-36.0); MEAN CORPUSCULAR VOLUME 82 fl (80-97); MONOCYTES % (AUTO) 6.9 % (3-13); PLATELET COUNT 283 10^3/uL (150-450); RED BLOOD COUNT 5.64 10^6/uL (4.35-5.55); RED CELL DISTRIBUTION WIDTH 13.1 % (11.5-14.0); SEGMENTED NEUTROPHILS % (AUTO) 61.5 % (42-78); TOTAL CELLS COUNTED % (AUTO) 100 %; WHITE BLOOD COUNT 7.7 10^3/uL (4.0-10.5)
--- NOTE | 2019-12-08 11:02 | RADIOLOGY REPORT (SQ) ---
EXAM DESCRIPTION: CHEST 2 VIEWS IMAGES COMPLETED DATE/TIME: 12/08/2019 10:49 am REASON FOR STUDY: chest pain into shoulder neck jaw and ear COMPARISON: PA and lateral views of the chest from 02/04/2019. EXAM PARAMETERS: NUMBER OF VIEWS: Two views. TECHNIQUE: PA and lateral views of the chest were obtained. RADIATION DOSE: NA LIMITATIONS: None. FINDINGS: LUNGS AND PLEURA: No consolidation, pleural effusion or pneumothorax. MEDIASTINUM AND HILAR STRUCTURES: No mediastinal or hilar contour abnormality. HEART AND VASCULAR STRUCTURES: The cardiac silhouette and pulmonary vasculature are within normal quarles its. BONES: No acute findings. HARDWARE: None in the chest. OTHER: No other finding. IMPRESSION: No acute cardiopulmonary process. TECHNICAL DOCUMENTATION: JOB ID: [id number] 2010 [employer]- All Rights Reserved Reading location - IP/workstation name: [email or web address]
[2019-12-08 11:15] LABS: ALBUMIN 4.5 g/dL (3.5-5.0); ALKALINE PHOSPHATASE 51 U/L (38-126); ANION GAP 10 (5-19); ASPARTATE AMINO TRANSFERASE 24 U/L (17-59); BILIRUBIN,DIRECT 0.2 mg/dL (0.0-0.4); BILIRUBIN,TOTAL 0.6 mg/dL (0.2-1.3); BLOOD UREA NITROGEN 15 mg/dL (7-20); CALCIUM 9.6 mg/dL (8.4-10.2); CARBON DIOXIDE 23 mmol/L (22-30); CHLORIDE 106 mmol/L (98-107); GLUCOSE 107 mg/dL (75-110); POTASSIUM 4.6 mmol/L (3.6-5.0); TOTAL PROTEIN 7.1 g/dL (6.3-8.2)
--- NOTE | 2019-12-08 11:19 | EKG REPORT ---
SEVERITY:- NORMAL ECG - SINUS RHYTHM : Confirmed by: Augusto Barone MD 08-Dec-2019 11:18:06
--- NOTE | 2019-12-08 13:20 | ER Document Report ---
ED General - General Chief Complaint: Shoulder Pain Stated Complaint: CHEST PAIN Time Seen by Provider: 12/08/19 10:31 Mode of Arrival: Ambulatory TRAVEL OUTSIDE OF THE [place] IN LAST 30 DAYS: No - HPI Notes: Chief complaint: Chest pain History of present illness: Previously healthy 29-year-old male not regularly under the care physician taking no medications presents with left anterior chest pain starting last night described as sharp and cramping intermittently lasting a few seconds at a time radiating into his neck and left shoulder. Patient is described as "pretty bad sometimes" but he is reluctant to put a number on this. Not associated with any nausea, vomiting, diaphoresis or dyspnea. Aggravated by movement and touching the area. Patient states that he vapes. He denies any use of cocaine. He denies any injury. He is not diabetic. He has no history of hypertension. He has no history of hyperlipidemia. Had an elderly grandfather who had CABG surgery. He denies any personal or familial history of thromboembolic disease. HEART Score: HISTORY 0 ECG 0 AGE 2 RISK FACTORS 1 TROPONIN >3x=2 TOTAL: 1 If HEART score is <3 AND both tronponin measurments are normal, the 30 day risk of a major adverse cardiac event (all-cause mortality, myocardia infarction or need for coronary revscularization) is < 1% (Sensitivity 100%, NPV 100%). PERC negative - Related Data Allergies/Adverse Reactions: risperidone [From Risperdal] Allergy (Verified 12/08/19 10:24) Past Medical History - General Information source: Patient - Social History Smoking Status: Current Every Day Smoker Chew tobacco use (# tins/day): No Frequency of alcohol use: Occasional Drug Abuse: None Family History: Reviewed & Not Pertinent - Past Medical History Cardiac Medical History: Denies: Hx Hypercholesterolemia, Hx Hypertension Endocrine Medical History: Denies: Hx Diabetes Mellitus Type 1, Hx Diabetes Mellitus Type 2 Renal/ Medical History: Denies: Hx Peritoneal Dialysis Musculoskeletal Medical History: Reports Hx Musculoskeletal Trauma Traumatic Medical History: Reports: Hx Fractures - Ankle, Hx Traumatic Brain Injury Past Surgical History: Reports: Hx Orthopedic Surgery - Right Ankle - Pins placed, Hx Tonsillectomy, Other - Vasectomy 2016 - Immunizations Immunizations up to date: Yes Review of Systems - Review of Systems Notes: Constitutional: Negative for fever. HENT: Negative for sore throat. Eyes: Negative for visual changes. Cardiovascular: As per HPI. Respiratory: Negative for shortness of breath. Gastrointestinal: Negative for abdominal pain, vomiting or diarrhea. Genitourinary: Negative for dysuria. Musculoskeletal: Negative for back pain. Skin: Negative for rash. Neurological: Negative for headaches, weakness or numbness. 10 point ROS negative except as marked above and in HPI. Physical Exam - Vital signs Vitals: Temp Pulse Resp BP Pulse Ox 98.3 F 82 18 142/82 H 97 12/08/19 10:06 12/08/19 10:06 12/08/19 10:06 12/08/19 10:06 12/08/19 10:06 - Notes Notes: GENERAL: Well-developed well-nourished appearing in no acute distress. SKIN: Good turgor no rashes. HEAD: Normocephalic atraumatic. EYES: PERRLA. EOMI. Conjunctivae and sclerae clear. EARS: CANALS AND TMS CLEAR. NOSE: CLEAR. MOUTH: Moist mucosa. Good dentition. No stridor or edema. No drooling. NECK: Supple. No masses or thyromegaly. No adenopathy. Carotids 2+ without bruits. No JVD. BACK: Symmetrical without tenderness. CHEST: COMPLETELY reproducible pain with palpation over left anterior chest left side of neck and left anterior shoulder. Respirations unlabored. Breath sounds clear and symmetrical. HEART: Regular rhythm. No murmur gallop or rub. ABDOMEN: Soft nontender without masses, organomegaly or rebound. Bowel sounds normally active. No bruits. GENITALIA: Deferred. EXTREMITIES: No edema. No calf tenderness. Cap refill less than 1.5 seconds. Dorsalis pedis and posterior tibial pulses 3+ and symmetrical. NEUROLOGICAL: GCS 15. Alert and oriented x3. Normal gait. Fluent speech. Cranial nerves II through XII intact. Sensorimotor and cerebellar normal. Normal tone. PSYCHIATRIC: Appropriate affect. Course - Re-evaluation Re-evalutation: 12/08/19 13:20 Paucity of risk factors. Normal EKG. Normal chest x-ray. Normal cardiovascular exam. Pain reproducible with palpation. Troponin normal. Feel this is likely to be chest wall pain. Patient is reassured. Findings, clinical impression and plan of treatment have been discussed with patient/family. Understanding of current findings and recommendations has been acknowledged by them and there is agreement regarding disposition and follow-up. - Vital Signs Vital signs: Temp Pulse Resp BP Pulse Ox 98.3 F 82 18 142/82 H 100 12/08/19 10:06 12/08/19 10:06 12/08/19 10:06 12/08/19 10:06 12/08/19 10:34 - Laboratory Result Diagrams: 12/08/19 10:38 12/08/19 10:38 Laboratory results interpreted by me: 12/08/19 10:38 RBC 5.64 H - Diagnostic Test Radiology reviewed: Reports reviewed - Normal chest x-ray per radiologist. - EKG Interpretation by Me Additional EKG results interpreted by me: 12/08/19 13:21 Twelve-lead EKG reviewed by me contemporaneously: 0955 hrs. Indication for study: Chest pain Rhythm: Normal sinus Rate: 81 Intervals: Normal QRS axis: Normal +[address]/T wave changes: None Comparison with prior tracing: Unchanged from prior study 01/28/2019 Interpretation: Normal tracing Discharge - Discharge Clinical Impression: Chest wall pain Condition: Stable Disposition: HOME, SELF-CARE Instructions: Chest Wall Pain ([facility]) Prescriptions: Naproxen 500 mg PO BID PRN 7 Days #14 tablet PRN Reason: Forms: Return to Work, Smoking Cessation Education, Elevated Blood Pressure Referrals: [facility] [Provider Group] - Follow up as needed
[2019-12-08] MEDS ORDERED: KETOROLAC TROMETHAMINE INJ/PF 30 MG/1 ML SDV IV ONE (13:23)
[2019-12-08 15:23] VITALS: BP 134/86
== END 2019-12-08 15:36 | disposition home or self-care (01) ==
LOC: ER 09:51
DX: R07.89 Other chest pain (principal); M54.2 Cervicalgia; M25.512 Pain in left shoulder; F17.290 Nicotine dependence, other tobacco product, uncomplicated; Z88.8 Allergy status to other drugs, medicaments and biological substances
CPT/HCPCS: 93005; 99285; 96374; 36415; 83735; 84443; 85025; 80053; 84484; 71046; 93010; J1885